=== PATIENT | female | born 1945 | race Caucasian/White ===

== ENCOUNTER 2021-03-11 10:28 | Inpatient (IN) | payer MEDICARE, BC, SELFPAY ==
[2021-03-11] VITALS (24 sets, daily range): BP systolic 61–135; BP diastolic 37–70; PULSE 86–112; RESP 16–29; TEMP 36.7–39.4; O2SAT 93–100; BMI 44.1
--- NOTE | ~2021-03-11 | US_ITS ---
EXAMINATION: US renal BI DATE: 03/12/2021 08:22 INDICATION: Acute kidney injury TECHNIQUE: Multiple grayscale and Doppler ultrasound images of the kidneys were obtained. COMPARISON: None. FINDINGS: The kidneys are poorly visualized due to body habitus. The right kidney measures 11.8 x 5.6 x 5.1 cm. The left kidney measures 10.8 x 4.8 x 5.6 cm. The kidneys demonstrate normal parenchymal e chogenicity. There is no hydronephrosis. The bladder is decompressed by a Pearson catheter. IMPRESSION: 1. Grossly normal kidneys without hydronephrosis. Reviewed, dictated and finalized at location A.
--- NOTE | ~2021-03-11 | XR_ITS ---
EXAMINATION: XR chest PICC line EXAM DATE: 03/11/2021 16:52 INDICATION: Check line placement. TECHNIQUE: Portable AP frontal chest x-ray was obtained. Comparison is made to prior examination from 03/11/2021. FINDINGS: Left IJ venous line, tip extending along expected course, tip overlying the SVC below the l evel of the fadumo. Right midlung zone granuloma. Left basilar linear atelectasis. The cardiac silhou ette is enlarged. There is pulmonary vascular congestion. There is no pneumothorax suspected. There a re no pleural effusions. There is aortic arteriosclerosis. There are mild bony degenerative changes. IMPRESSION: 1. Central line in position. 2. Cardiomegaly, pulmonary vascular congestion. 3. Left basilar linear atelectasis. Reviewed, dictated and finalized at location A.
--- NOTE | ~2021-03-11 | XR_ITS ---
EXAMINATION: XR chest 2V DATE: 03/11/2021 10:55 INDICATION: Weakness. Right lung nodule. TECHNIQUE: frontal and lateral views of the chest were obtained. COMPARISON: Chest radiograph dated 02/20/[address] dated 04/23/2017 FINDINGS: Calcified right upper lobe nodule consistent with old granulomatous disease. Mild left basilar atelec tasis/scarring. No new airspace opacities, pulmonary edema, pleural effusion or pneumothorax. The car diomediastinal silhouette is normal. Osteopenia with thoracic kyphosis and mild anterior wedging of a few mid thoracic vertebral bodies. There are bridging osteophytes at multiple levels in the spine, c onsistent with diffuse idiopathic skeletal hyperostosis (DISH). IMPRESSION: 1. Mild left basilar atelectasis/scarring. No other acute cardiopulmonary disease. Reviewed, dictated and finalized at location A. IMPRESSION: 1. Mild left basilar atelectasis/scarring. No other acute cardiopulmonary disea se.
--- NOTE | ~2021-03-11 | XR_ITS ---
EXAMINATION: XR chest 2V DATE: 03/15/2021 07:58 INDICATION: Aspiration. TECHNIQUE: Frontal and lateral views of the chest were obtained. COMPARISON: Chest single view 03/11/2021, chest CT 04/23/2017 FINDINGS: Calcified right lung nodules are consistent with old granulomatous disease. There are airsp lizandro opacities at lung bases. There are small pleural effusions. No pneumothorax. The heart size is no rmal. A left internal jugular central venous catheter is seen with tip in the superior vena cava. Jose gical clips in the right upper quadrant are likely from cholecystectomy. IMPRESSION: 1. Small pleural effusions. 2. Worsened airspace opacities at the lung bases, consistent with atelectasis versus pneumonia. Reviewed, dictated and finalized at location A. IMPRESSION: 1. Small pleural effusions. 2. Worsened airspace opacities at the lung bases, consistent with atelectasis v ersus pneumonia.
--- NOTE | ~2021-03-11 | CT_ITS ---
EXAMINATION: CTA abdomen pelvis DATE: 03/17/2021 18:32 CDT INDICATION: History of abdominal aortic aneurysm. TECHNIQUE: Computed tomographic angiography (CTA) of the abdomen and pelvis was performed without and with 100 mL Omnipaque-350 intravenous contrast. The dose-length product was 1033.79 mGy-cm. Maximum intensity projection 3D-reconstructions of the aorta and other arteries were constructed by the techn ologist on a separate workstation. COMPARISON: CT dated 03/20/2011. FINDINGS: There has been enlargement of infrarenal abdominal saccular aneurysm measuring 6 x 5.8 cm c ompared with 4.3 x 3.9 cm on prior examination. There is mural thrombus. Celiac axis, SMA and renal a rteries are patent. The XAVIER is identified with enhancement. The aneurysm ends just proximal to the ao rtic bifurcation. Small pleural effusions. Bibasilar airspace disease which most likely represents atelectasis. Pneumon ia less favored. There is nodular appearance to the liver surface, suspicious for cirrhosis. The spleen, pancreas, adr enal glands and kidneys are unremarkable. There are ventral hernias of the lower abdomen containing f at. Nonobstructive bowel gas pattern. Colonic diverticulosis without evidence for acute diverticuliti s. Uterus is surgically absent. There is moderate-severe lumbar spondylosis. No free air or free flui d. There is a Pearson catheter in the bladder. IMPRESSION: 1. Enlarging saccular aneurysm of the infrarenal abdominal aorta measuring 6 x 5.8 cm compared with 4 .3 x 3.9 cm on 03/20/2011. 2: Bibasilar airspace disease which may represent atelectasis or developing pneumonia. 3: Small pleural effusions. 4: Nodular liver surface, suspicious for cirrhosis. Reviewed, dictated and finalized at location A. IMPRESSION: 1. Enlarging saccular aneurysm of the infrarenal abdominal aorta measuring 6 x 5.8 cm compared with 4.3 x 3.9 cm on 03/20/2011. 2: Bibasilar airspace disease which may represent atelectasis or developing pne umonia. 3: Small pleural effusions. 4: Nodular liver surface, suspicious for cirrhosis.
--- NOTE | ~2021-03-11 | XR_ITS ---
EXAMINATION: XR abdomen/kub 1V EXAM DATE: 03/17/2021 16:48 INDICATION: Abdominal pain. TECHNIQUE: Frontal projection of the upper abdomen, frontal projection lower abdomen/pelvis for inter pretation. There is no prior study for comparison. FINDINGS: There are cholecystectomy clips. Moderate amount of colonic gas, smaller amount of stool No small bowel dilation, nonobstructive bowel gas pattern. There are no suspicious calcifications identified. There is no organomegaly suspected. There are bony degenerative changes. Possible sma ll pleural effusions. IMPRESSION: Nonobstructive bowel gas pattern. Possible small pleural effusions. Reviewed, dictated and finalized at location B. IMPRESSION: Nonobstructive bowel gas pattern. Possible small pleural effusions .
--- NOTE | 2021-03-11 10:39 | ECG_ITS ---
Measurements Intervals [place] Rate: 92 P: -43 OR: 146 QRS: -9 QRSD: 87 T: 30 QT: 397 QTc: 493 Interpretive Statements SINUS RHYTHM DELAYED PRECORDIAL R/S TRANSITION BASELINE ARTIFACT- I, III BORDERLINE ECG Electronically Signed On 03-11-2021 13:07:12 CDT by Bruce Flowers D.O.
[2021-03-11 10:51] LABS: Hematocrit 40.7 % (37.0-47.0); Hemoglobin 13.3 g/dL (12.0-15.0); Mean Corpuscular HGB Conc 32.7 g/dl (32-36); Mean Corpuscular Hemoglobin 31.2 pg (26-34); Mean Corpuscular Volume 95.5 fl (80-100); Mean Platelet Volume 11.3 fl (7.4-10.4); Platelet Count Result 212 k/mm3 (150-375); Red Blood Count 4.26 M/mm3 (4.2-5.4); Red Cell Distribution Width 13.5 % (11.5-14.5); White Blood Count 30.9 K/mm3 (4.5-10.0)
[2021-03-11 11:06] LABS: Albumin Level 4.1 g/dL (3.5-5.1); Alkaline Phosphatase 106 U/L (38-126); Anion Gap 18 mmol/L (8-16); Aspartate Amino Transferase 33 U/L (14-36); Bilirubin,Total 0.5 mg/dL (0.2-1.3); Blood Urea Nitrogen 27 mg/dL (7-17); Calcium 9.7 mg/dL (8.4-10.2); Carbon Dioxide 16 mmol/L (22-30); Chloride 104 mmol/L (98-107); Estimated CRCL calculation 20 ml/min; Estimated Glomerular Filt Rate 17; Glucose 312 mg/dL (65-105); Potassium 3.1 mmol/L (3.4-5.0); Sodium 138 mmol/L (137-145)
[2021-03-11 11:13] LABS: Alanine Aminotransferase 27 U/L (4-35)
[2021-03-11 11:32] LABS: Total Cells Counted 100
[2021-03-11 11:33] LABS: Band Neutrophils Percent 11 % (0-6); Lymphocytes Absolute Manual 2.47 K/mm3 (1.1-4.5); Lymphocytes Percent Manual 8 % (18-44); Monocytes Absolute Manual 1.23 K/mm3 (0.1-0.90); Monocytes Percent Manual 4 % (3-9); Neutrophils Absolute Manual 27.19 K/mm3 (1.7-7.2); Neutrophils Percent Manual 77 % (46-73); Platelet Estimate Adequate (Adequate)
[2021-03-11] MEDS: SODIUM CHLORIDE 0.9% IV 1,000 ML 999 ML IV CONT (12:41)
--- NOTE | 2021-03-11 12:53 | ED.GENADULT ---
HPI - General Adult General Chief complaint: Weakness Stated complaint: weakness mult c/o Time Seen by Provider: 03/11/21 12:14 Source: patient Mode of arrival: ambulatory Limitations: no limitations History of Present Illness HPI narrative: Patient is a 75-year-old female complaining of not feeling well described as fatigue, generalized weakness, nausea that started approximately 3 weeks ago after my family doctor changed my Januvia to Jardiance since then I have been feeling weak no energy no appetite feel like I am gonna pass out . Daughter also states that patient's blood pressure is low possibly due to patient recently being placed on lisinopril 20 mg by her primary care physician. Patient denies any headache, dizziness, chest pain, abdominal pain, vomiting, diarrhea, fever or chills. Related Data Home Medications Medication Instructions Recorded Confirmed aspirin 81 mg tablet,delayed 81 mg PO DAILY 05/10/20 11/17/20 release cholecalciferol (vitamin D3) 125 125 mcg PO DAILY 05/10/20 11/17/20 mcg (5,000 unit) capsule coenzyme Q10 200 mg capsule 200 mg PO DAILY 05/10/20 11/17/20 sitagliptin 100 mg tablet 100 mg PO DAILY 05/10/20 11/17/20 vitamin A-vit C-vit E-zinc-Cu 1 tablet PO BID tablet 05/10/20 11/17/20 tablet vitamin B complex 1 tablet PO DAILY 05/10/20 11/17/20 ferrous sulfate 325 mg (65 mg 325 mg PO DAILY 11/16/20 11/17/20 iron) tablet melatonin 10 mg capsule 10 mg PO QHS 11/16/20 11/17/20 vitamin B12 0.5 mg-folic acid 1 mg 1 tablet PO DAILY 11/16/20 11/17/20 tablet Allergies Allergy/AdvReac Type Severity Reaction Status Date / Time No Known Allergies Allergy Mild Verified 03/11/21 11:38 Review of Systems Review of Systems: All systems reviewed & are unremarkable except as noted in HPI and below Constitutional: Constitutional: Denies body ache(s), Denies chills, Denies excessive sweating, Denies fever(s), Denies headache(s) and Denies weight loss Eyes: Eyes: Denies blurry vision, Denies change in vision and Denies loss of vision ENT: Denies dizziness, Denies ear discharge, Denies headache(s), Denies lip swelling, Denies epistaxis, Denies nasal congestion, Denies neck pain, Denies throat swelling and Denies tongue swelling Cardiovascular: Cardiovascular: Denies chest pain, Denies chest pain at rest, Denies chest pain with activity, Denies diaphoresis, Denies rapid heart rate, Denies edema, Denies irregular heart rhythm, Denies lightheadedness, Denies palpitations, Denies dyspnea and Denies dyspnea on exertion Respiratory: Respiratory: Denies chest congestion, Denies cough, Denies hemoptysis, Denies dyspnea and Denies dyspnea on exertion Gastrointestinal: Gastrointestinal: Denies abdominal pain, Denies melena, Denies hematochezia, Denies diarrhea, Denies nausea, Denies vomiting and Denies hematemesis Musculoskeletal: Musculoskeletal: Denies abnormal gait, Denies deformity, Denies joint swelling, Denies limited range of motion, Denies neck pain and Denies numbness Neurologic: Denies Abnormal speech present, Denies abnormal gait, Denies confusion, Denies dizziness, Denies headache(s), Denies focal weakness, Denies loss of vision, Denies numbness, Denies Other visual disturbances, Denies Sensory deficit (Neuro) and Denies weakness Psychiatric: Psychiatric: Denies confusion, Denies depression, Denies auditory hallucinations, Denies homicidal ideation and Denies suicidal ideation Endocrine: Endocrine: Denies cold intolerance, Denies excessive sweating, Denies fatigue, Denies heat intolerance and Denies palpitations Hematologic/Lymphatic: Hematologic/Lymphatic: Denies easy bleeding and Denies easy bruising Allergic/Immunologic: Allergic/Immunologic: Denies lip swelling, Denies throat swelling and Denies tongue swelling PMFSH Past Medical History Medical History Diabetes mellitus Obstructive sleep apnea Uterine cancer Surgical History Surgica
--- NOTE | 2021-03-11 13:00 | PC.NURSE ---
straight cath in place, scant amount of urine in bag, not enough for UA specimen.
[2021-03-11 14:08] LABS: Add Urine Microscopic? YES; Appearance Urine Turbid (Clear); Bacteria Urine Trace /hpf; Bilirubin Urine Negative (Negative); Blood Urine 3+ (Negative); Color Urine Amber (Yellow); Glucose Urine UA 3+ mg/dL (Negative); Ketones Urine Negative (Negative); Leukocyte Esterase Ur 2+ LEU/UL (Negative); Mucus Urine Moderate /lpf; Nitrate Urine Negative (Negative); Protein Urine 2+ mg/dL (Negative); RBC Urine >75 /hpf (0-2); Specific Grav Ur 1.023 (1.001-1.035); Squamous Epithelial Cell Urine Many /hpf (Few); Urobilinogen Urine Negative mg/dL (<2.0); WBC Clumps Urine Present /HPF; WBC Urine >75 /hpf
[2021-03-11 15:14] LABS: Alveolar/Arterial O2 Gradient 92.6 mmHg; Base Excess ABG -5.2 mEq/l (+/-2.0); Carboxyhemoglobin 0.7 % THb (0-2.0); Fractional Inspired Oxygen 28 %; HCO3 ABG 18.3 mEq/l (22.0-26.0); Oxygen Content ABG 17.1 %vol (16.0-22.0); Oxygen Saturation ABG 94.8 % (95.0-100.0); PCO2 ABG 29.7 mmHg (35.0-45.0); PO2 FiO2 Ratio Arterial Blood 2.57 %; Reduced Hemoglobin 5.3 %THb (0-5.0); Total Hemoglobin 12.9 g/dL (12.0-18.0); pH ABG 7.407 (7.350-7.450)
[2021-03-11 15:15] LABS: Device NASAL CANNULA; Modified Allen's Test Pass; Site Drawn RIGHT RADIAL
[2021-03-11] MEDS: ONDANSETRON INJ 4 MG/2 ML VIAL IV PUSH (15:35)
[2021-03-11] MEDS: LIDOCAINE HCL 1% PF INJ 5 ML VIAL INFILTRATE (16:25)
[2021-03-11 17:33] LABS: Lactic Acid Reflex 2.6 mmol/L (0.7-2.1)
[2021-03-11] MEDS: LACTATED RINGERS 1,000 ML 125 ML IV CONT ×2 (17:40→23:59)
--- NOTE | 2021-03-11 18:27 | ADMGEN ---
This patient, Veronika Dougherty, was admitted to Intensive Care Unit-5 at 1730 on 03-11-21. Patient/family oriented to hospital policies and general routines including ID bracelet, bed and alarms, visiting hours, pain management, procedures, bathroom and other care routines, personal items, smoking policy, room service/diet, and visiting hours. Information on how to activate the Rapid Response Team has been discussed. Patient/Family are encouraged to report perceived risks to care and to ask questions if they do not understand what they are told or what they should do.
[2021-03-11] MEDS: CENTRAL LINE FLUSH 10 ML IV PUSH ×2 (18:52→22:17)
--- NOTE | 2021-03-11 18:54 | PM.IMHP ---
H&P: HPI History of Present Illness Date/Time: 03/11/21 18:54 this is a 75-year-old female patient who lives at home alone. The patient has been feeling poorly for the last 3 weeks. The patient recently had her diabetic medications changed and she has been feeling fatigued generalized weakness and some nausea. She has not been eating very well at all. She has no appetite and is weak and stated she felt like she was going to pass out. The daughter is at the bedside and states that she is a nurse. The daughter stated that her mother's blood pressure is low today and that she recently was started on lisinopril. Patient's white count was noted to be 30.9. With a shift to the left. Her potassium is found to be 3.1. But was not supplemented as of yet because the patient was too nauseated to take the p.o. potassium. An Ig was placed in the emergency room. Her creatinine was 2.8 today. Her previous creatinine was 1.0 back in November. GFR 17. Pearson catheter was placed in the emergency room. The patient only has about 400 cc of dark cloudy urine. The patient was found to be positive for UTI. Also there was some concern for possible aspiration pneumonia as the patient was found have vomit on the side of her face when the EMS came to pick her up. Her blood sugar was found to be 314 today. Her last A1c was 7.8 in November. Her lactic today is 2.6. Troponin was 0.100. Blood and urine cultures were obtained. The sepsis protocol was initiated in the Emergency with 30 mils per kg of IV fluids. The patient was started on Zosyn. Patient's initial blood pressures were noted to be 98/43 and a IJ was placed. IV fluids were given and antibiotics were given in the emergency room. Levophed was ordered but never started because her blood pressure started to come up with The 3 L of IV fluids. her blood pressure is 119/66 now. Her daughter is at the bedside who is the power slag mixer. We have explained all of the protocols for sepsis to the patient's daughter and the patient. The patient's daughters very upset that her mother's blood pressure was so low to begin with. I explained her sepsis protocol to the patient and the daughter. The patient is alert orientated x4 and able to answer questions on her own. The daughter initially stated that she wanted her mother moved to [place] and was not happy with the care here. I spoke with the patient the patient stated that she is okay with staying here. The patient is now receiving IV Tylenol for a temperature of 37.8?. The patient is now having fever and chills. The patient is being admitted to inpatient ICU on the date of service of 03/11/2021. Chief Complaint: Weakness Review of Systems Review of Systems: All systems reviewed & are unremarkable except as noted in HPI and below Constitutional: Constitutional: Reports as per HPI and Reports no additional constitutional complaints Eyes: Eyes: Reports as per HPI and Reports no additional eye complaints ENT: Reports system reviewed and no additional complaints, except as documented and Reports Normal hearing present Cardiovascular: Cardiovascular: Reports no additional cardiovascular complaints Respiratory: Respiratory: Reports no additional respiratory complaints and Reports no additional respiratory complaints Gastrointestinal: Gastrointestinal: Reports as per HPI and Reports no additional gastrointestinal complaints Musculoskeletal: Musculoskeletal: Reports no additional musculoskeletal complaints Integumentary/Breasts: Skin/Breast: Reports system reviewed and no additional complaints, except as docu and Reports as per HPI Neurologic: Reports system reviewed and no additional complaints, except as documented, Reports as per HPI and Reports Normal hearing present Psychiatric: Psychiatric: Reports no additional psychiatric complaints and Reports as per HPI Endocrine: Endocrine: Reports no additional endocrine complaints Hematologic/Lymphatic: Hematologic/Lymph
[2021-03-11] MEDS: KCL 20 MEQ/SW 100 ML 100 ML 50 MEQ IVPB (19:39)
[2021-03-11] MEDS: HEPARIN SODIUM 5,000 UNITS/ML VIAL 5000 UNITS SUB-Q (19:45)
[2021-03-11 19:59] LABS: Lactic Acid Reflex 1.5 mmol/L (0.7-2.1)
[2021-03-11 20:20] LABS: Reflex Lactic Acid Yes or No Add Lactic
[2021-03-11 20:26] LABS: Troponin I 0.055 ng/mL (0.000-0.034)
[2021-03-11 21:14] LABS: Glucose Point of Care 158 mg/dl (65-105)
[2021-03-11 23:00] LABS: Anion Gap 8 mmol/L (8-16); Blood Urea Nitrogen 27 mg/dL (7-17); Calcium 8.5 mg/dL (8.4-10.2); Carbon Dioxide 23 mmol/L (22-30); Chloride 106 mmol/L (98-107); Estimated CRCL calculation 27 ml/min; Estimated Glomerular Filt Rate 23; Glucose 167 mg/dL (65-105); Potassium 3.7 mmol/L (3.4-5.0); Sodium 137 mmol/L (137-145)
[2021-03-11 23:16] LABS: Troponin I 0.068 ng/mL (0.000-0.034)
[2021-03-12] VITALS (16 sets, daily range): BP systolic 112–159; BP diastolic 41–67; PULSE 84–117; RESP 16–30; TEMP 36.8–38.7; O2SAT 90–98
--- NOTE | 2021-03-12 | ECHO_ITS ---
Patient Info Name: Veronika Dougherty Age: 75 years : 1945 Gender: Female Ht: 64 in Wt: 259 lbs BSA: 2.37 m2 HR: 117 bpm BP: 132 / 119 mmHg Heart Rhythm: Sinus Rhythm Technical Quality: Poor Exam Date: 03/12/2021 11:17 AM Exam Location: [facility] Pulmonary Exam Room: ICU 5 Patient Status: Inpatient Admit Date: 03/11/2021 Staff Ordering Physician: Freddy Ortiz MD Shot Tube Machine Tender: Rachel oBse RDCS Attending Provider: Peter Mercer MD Exam Type: CA echo dop color flow w con Study Info Indications - NSTEMI Complete two-dimensional, color flow and Doppler transthoracic echocardiogram is performed with contrast to opacify the left ventricle and to improve the deliniation of the left ventricle endocardial borders. Contrast/Agitated Saline Contrast/Ag. Saline: Definity Amount: 1.00 ml Administered By: Rocky Woodruff RN Existing IV Access: Yes IV Access Condition: patent with no signs of infiltration Reason for Poor Study: patient body habitus Summary 1. Left ventricular chamber dimension is normal. 2. Left ventricular systolic function is normal, estimated at 55-60%. 3. Definity contrast injected to improve visualization. 4. No ischemic wall motion abnormalities were identified. 5. Obese body habitus, technically challenging exam. Left Ventricle Left ventricular chamber dimension is normal. Left ventricular systolic function is normal, estimated at 55-60%. The left ventricular diastolic function is grade I diastolic dysfunction. Definity contrast injected to improve visualization. No ischemic wall motion abnormalities were identified. Right Ventricle Right ventricular chamber dimension is normal. Left Atria Left atrial chamber dimension is normal. Right Atria Right atrial chamber dimension is not well visualized. Aortic Valve The aortic valve is trileaflet. There is mild aortic valve sclerosis. Pulmonic Valve The pulmonic valve is not well visualized. Mitral Valve The mitral valve has normal leaflets. Tricuspid Valve The tricuspid valve leaflets are normal. Pericardium/Pleural The pericardium appears normal. Aorta The aortic root size at the sinus of Valsalva is normal. Left Ventricular Outflow Tract Name Value Normal LVOT 2D LVOT Diameter 2.08 cm LVOT Doppler LVOT Peak Gradient 7 mmHg LVOT Mean Gradient 5 mmHg LVOT VTI 23.16 cm LVOT VTI/AV VTI Ratio 0.74 LVOT Stroke Volume 78.70 ml LVOT CO 22.06 l/min LVOT CI 9.31 L/min/m2 Pulmonic Valve Name Value Normal PV Doppler PV Peak Gradient 4 mmHg Mitral Valve
[2021-03-12] MEDS: ONDANSETRON INJ 4 MG/2 ML VIAL IV PUSH ×2 (04:50→12:30)
[2021-03-12] MEDS: CENTRAL LINE FLUSH 10 ML IV PUSH ×4 (04:50→20:55)
[2021-03-12 05:22] LABS: Hematocrit 32.5 % (37.0-47.0); Hemoglobin 11.1 g/dL (12.0-15.0); Hemoglobin A1C 7.1 % (<5.7); Mean Corpuscular HGB Conc 34.2 g/dl (32-36); Mean Corpuscular Hemoglobin 31.7 pg (26-34); Mean Corpuscular Volume 92.9 fl (80-100); Mean Platelet Volume 11.5 fl (7.4-10.4); Platelet Count Result 141 k/mm3 (150-375); Red Cell Distribution Width 13.2 % (11.5-14.5); White Blood Count 15.8 K/mm3 (4.5-10.0)
[2021-03-12 05:52] LABS: Alanine Aminotransferase 21 U/L (4-35); Albumin Level 3.2 g/dL (3.5-5.1); Alkaline Phosphatase 82 U/L (38-126); Anion Gap 8 mmol/L (8-16); Aspartate Amino Transferase 43 U/L (14-36); Bilirubin,Total 0.6 mg/dL (0.2-1.3); Blood Urea Nitrogen 25 mg/dL (7-17); Calcium 8.6 mg/dL (8.4-10.2); Carbon Dioxide 22 mmol/L (22-30); Chloride 107 mmol/L (98-107); Estimated CRCL calculation 30 ml/min; Estimated Glomerular Filt Rate 26; Glucose 145 mg/dL (65-105); Magnesium 1.7 mg/dL (1.6-2.3); Potassium 3.5 mmol/L (3.4-5.0); Sodium 137 mmol/L (137-145)
[2021-03-12 06:58] LABS: Band Neutrophils Percent 7 % (0-6); Monocytes Absolute Manual 0.31 K/mm3 (0.1-0.90); Monocytes Percent Manual 2 % (3-9); Neutrophils Absolute Manual 14.37 K/mm3 (1.7-7.2); Neutrophils Percent Manual 84 % (46-73); Platelet Estimate Adequate (Adequate); Total Cells Counted 100
[2021-03-12] MEDS: ASPIRIN 81 MG ENTERIC TABLET PO (08:48)
[2021-03-12] MEDS: HEPARIN SODIUM 5,000 UNITS/ML VIAL 5000 UNITS SUB-Q ×2 (08:48→20:54)
[2021-03-12 08:56] LABS: Glucose Point of Care 152 mg/dl (65-105)
--- NOTE | 2021-03-12 09:10 | WPDCNINT ---
Assessment and Plan Assessment and plan (1) Sepsis: Code(s): A41.9 - Sepsis, unspecified organism Status: Acute Assessment and Plan: secondary to UTI Patient was given 30 mL/kgIV fluids bolus per septic protocol. The patient was started on Zosyn for possible aspiration pneumonia as well as urinary tract infection. central venous catheter was placed in anticipation of starting vasopressors as patient's blood pressure remained low after fluid bolus but blood pressure improved and she has not required vasopressors at this time. continue IV fluids and closer monitoring start Levophed if needed cultures urine and blood sent and pending (2) Urinary tract infection: Qualifiers: Hematuria presence: with hematuria Urinary tract infection type: acute cystitis Qualified Code(s): N30.01 - Acute cystitis with hematuria Code(s): N39.0 - Urinary tract infection, site not specified Status: Acute Assessment and Plan: see above (3) Acute renal failure: Qualifiers: Acute renal failure type: unspecified Qualified Code(s): N17.9 - Acute kidney failure, unspecified Code(s): N17.9 - Acute kidney failure, unspecified Status: Acute Assessment and Plan: likely prerenal secondary to sepsis and hypertension creatinine is improving with IV fluids Continue to hydrate the patient. check renal ultrasound (4) COPD (chronic obstructive pulmonary disease): Qualifiers: COPD type: unspecified COPD Qualified Code(s): J44.9 - Chronic obstructive pulmonary disease, unspecified Code(s): J44.9 - Chronic obstructive pulmonary disease, unspecified Status: Chronic Assessment and Plan: bronchodilators (5) Obstructive sleep apnea: Code(s): G47.33 - Obstructive sleep apnea (adult) (pediatric) Status: Chronic Assessment and Plan: Continue with home CPAP. The patient brought her own in with her. (6) Acute hypokalemia: Code(s): E87.6 - Hypokalemia Status: Acute Assessment and Plan: replace low potassium (7) Diabetes mellitus: Qualifiers: Diabetes mellitus type: type 2 Diabetes mellitus assisted insulin use: without assisted use Diabetes mellitus complication status: with hyperglycemia Qualified Code(s): E11.65 - Type 2 diabetes mellitus with hyperglycemia Code(s): E11.9 - Type 2 diabetes mellitus without complications Status: Chronic Assessment and Plan: Accu-Cheks AC and HS and check A1c. (8) Elevated troponin: Code(s): R77.8 - Other specified abnormalities of plasma proteins Status: Acute Assessment and Plan: likely secondary to sepsis and renal dysfunction. patient denies any chest pain. EKG reviewed add aspirin check echo Additional Plan DVT prophylaxis - heparin subcu Code Status - Full Code Family updated at bedside Total Critical Care Time - 35 minutes Due to a high probability of clinically significant, life threatening deterioration, the patient required my highest level of preparedness to intervene emergently and I personally spent this critical care time directly and personally managing the patient. This critical care time included obtaining a history; examining the patient; pulse oximetry; ordering and review of studies; arranging urgent treatment with development of a management plan; evaluation of patient's response to treatment; frequent reassessment; and discussions with other providers. It was exclusive of separately billable procedures and treating other patients and teaching time. Please see Assessment and Plan section and the rest of the note for further information on patient assessment and treatment Radiation Control Worker Consult Note Consult date: 03/12/21 Time Seen: 07:10 HPI: Veronika Dougherty is a 75 year old female presented yesterday to ED with chief complaint of feeling poorly for the last 3 weeks. The vidhya
--- NOTE | 2021-03-12 09:54 | PC.NURSE ---
This nurse made a return phone call to daughter Ronit and a update was given on current plan of care. All questions answered per Ronit.
[2021-03-12] MEDS: LACTATED RINGERS 1,000 ML 125 ML IV CONT (09:59)
[2021-03-12] MEDS: SERTRALINE HCL 50 MG TABLET 100 MG PO (09:59)
[2021-03-12] MEDS: POTASSIUM CHLORIDE 20 MEQ TABLET 40 MEQ PO (09:59)
[2021-03-12 12:35] LABS: Glucose Point of Care 166 mg/dl (65-105)
--- NOTE | 2021-03-12 12:50 | PC.NURSE ---
pt transferred to room 242 via bed from ICU, oriented to new room and environment, no distress noted
--- NOTE | 2021-03-12 13:58 | PC.NURSE ---
This patient, Veronika Dougherty, was transferred to [ 242 ] on 03/12/21 at 1250. Personal belongings sent with patient. Report given to [ CON Hathaway. ]. Appropriate documentation sent with patient.
[2021-03-12 17:29] LABS: Glucose Point of Care 164 mg/dl (65-105)
--- NOTE | 2021-03-12 17:58 | PM.IMPN ---
Progress Note: A&P Assessment and Plan (1) Septic shock: Code(s): A41.9 - Sepsis, unspecified organism; R65.21 - Severe sepsis with septic shock Status: Acute Assessment and Plan: IV fluids at 1:20 a.m. 5 cc an hour will lower it to 60 cc an hour. Mildly tachycardic still and febrile Salbador the IV fluids on Hypotension has resolved without IV pressors she is turning positive on her blood culture (2) Urinary tract infection: Qualifiers: Hematuria presence: with hematuria Urinary tract infection type: acute cystitis Qualified Code(s): N30.01 - Acute cystitis with hematuria Code(s): N39.0 - Urinary tract infection, site not specified Status: Acute Assessment and Plan: The patient is on Zosyn at this time. blood culture positive for gram-negative bacilli Need to plan to remove the left IJ if it is not needed by tomorrow (3) Acute renal failure: Qualifiers: Acute renal failure type: unspecified Qualified Code(s): N17.9 - Acute kidney failure, unspecified Code(s): N17.9 - Acute kidney failure, unspecified Status: Acute Assessment and Plan: creatinine on admission 2.8 renal ultrasound negative Likely due to sepsis and dehydration Hold metformin and lisinopril Hold Jardiance due to urine tract infection and discontinue at discharge (4) COPD (chronic obstructive pulmonary disease): Qualifiers: COPD type: unspecified COPD Qualified Code(s): J44.9 - Chronic obstructive pulmonary disease, unspecified Code(s): J44.9 - Chronic obstructive pulmonary disease, unspecified Status: Chronic Assessment and Plan: Will do a Xopenex. (5) Obstructive sleep apnea: Code(s): G47.33 - Obstructive sleep apnea (adult) (pediatric) Status: Chronic Assessment and Plan: Continue with home CPAP. The patient brought her own in with her. (6) HTN (hypertension) with goal to be determined: Code(s): I10 - Essential (primary) hypertension Status: Chronic Assessment and Plan: hold blood pressure medication (7) Acute hypokalemia: Code(s): E87.6 - Hypokalemia Status: Acute Assessment and Plan: replace and monitor (8) Diabetes mellitus: Qualifiers: Diabetes mellitus type: type 2 Diabetes mellitus terminal worker insulin use: without terminal worker use Diabetes mellitus complication status: with hyperglycemia Qualified Code(s): E11.65 - Type 2 diabetes mellitus with hyperglycemia Code(s): E11.9 - Type 2 diabetes mellitus without complications Status: Chronic Assessment and Plan: Accu-Cheks AC and HS and A1c at 7.1 (9) Elevated troponin: Code(s): R77.8 - Other specified abnormalities of plasma proteins Status: Acute Assessment and Plan: likely due to sepsis with flat cardiac enzymes. No chest pain unlikely to be ACS (10) Bacteremia: Code(s): R78.81 - Bacteremia Status: Acute Assessment and Plan: Gram-negative bacilli Already on Zosyn (11) Diarrhea: Code(s): R19.7 - Diarrhea, unspecified Status: Acute Assessment and Plan: check C diff Additional Plan will plan to remove IJ and Pearson tomorrow if remains stable Subjective Date/time seen: 03/12/21 17:58 Interval history: feels weak but better than yesterday. Continues to have fever on and off. She still has a Pearson catheter in left IJ in place. She has been having explosive diarrhea 2-3 episodes already today. she has chronic diarrhea in the past Review of Systems Review of Systems: All systems reviewed & are unremarkable except as noted in HPI and below Exam Narrative: Exam Narrative: GENERAL: The patient is well developed, not in acute distress HEENT: Nonicteric sclerae, PERRLA, EOMI. Oropharynx clear. Moist mucous membranes. Conjunctivae appear well perfused. neck: neck supple left IJ in place CHEST: Chest wall
[2021-03-12] MEDS: LACTATED RINGERS 1,000 ML 60 ML IV CONT (20:54)
[2021-03-12 21:41] LABS: Glucose Point of Care 173 mg/dl (65-105)
[2021-03-13] VITALS (14 sets, daily range): BP systolic 127–137; BP diastolic 51–54; PULSE 91–102; RESP 16–20; TEMP 36.7–37.1; O2SAT 90–99
[2021-03-13] MEDS: CENTRAL LINE FLUSH 20 ML IV PUSH (05:06)
[2021-03-13] MEDS: CENTRAL LINE FLUSH 10 ML IV PUSH ×4 (05:06→21:33)
[2021-03-13 05:30] LABS: Basophils Percent Auto 0.3 % (0.2-1.2); Eosinophils Percent Auto 0.1 % (0-4.4); Hematocrit 35.6 % (37.0-47.0); Hemoglobin 11.5 g/dL (12.0-15.0); Immature Granulocyte Absolute 0.05 K/mm3 (0.00-0.031); Immature Granulocyte Percent A 0.5 % (0-0.5); Lymphocytes Absolute Auto 0.54 K/mm3 (0.9-3.2); Lymphocytes Percent Auto 5.6 % (18.3-44.2); Mean Corpuscular HGB Conc 32.3 g/dl (32-36); Mean Platelet Volume 11.1 fl (7.4-10.4); Monocytes Absolute Auto 0.4 K/mm3 (0.1-0.6); Monocytes Percent Auto 4.4 % (2.6-8.5); Neutrophils Absolute Auto 8.6 K/mm3 (1.3-6.7); Neutrophils Percent Auto 89.1 % (45.5-73.1); Platelet Count Result 133 k/mm3 (150-375); Red Blood Count 3.71 M/mm3 (4.2-5.4); Red Cell Distribution Width 13.5 % (11.5-14.5); White Blood Count 9.7 K/mm3 (4.5-10.0)
[2021-03-13 05:48] LABS: Anion Gap 9 mmol/L (8-16); Blood Urea Nitrogen 22 mg/dL (7-17); Calcium 8.8 mg/dL (8.4-10.2); Carbon Dioxide 22 mmol/L (22-30); Chloride 108 mmol/L (98-107); Estimated CRCL calculation 41 ml/min; Estimated Glomerular Filt Rate 37; Glucose 161 mg/dL (65-105); Potassium 3.8 mmol/L (3.4-5.0); Sodium 139 mmol/L (137-145)
[2021-03-13 05:54] LABS: NT Pro B Type Natriuretic Pept 1370 pg/mL (5-100)
[2021-03-13] MEDS: ACETAMINOPHEN 500 MG TABLET 1000 MG PO (08:50)
[2021-03-13] MEDS: SERTRALINE HCL 50 MG TABLET 100 MG PO (08:51)
[2021-03-13] MEDS: ASPIRIN 81 MG ENTERIC TABLET PO (08:51)
[2021-03-13] MEDS: HEPARIN SODIUM 5,000 UNITS/ML VIAL 5000 UNITS SUB-Q ×2 (08:52→21:01)
--- NOTE | 2021-03-13 10:06 | PM.IMPN ---
Progress Note: A&P Assessment and Plan (1) Septic shock: Code(s): A41.9 - Sepsis, unspecified organism; R65.21 - Severe sepsis with septic shock Status: Acute Assessment and Plan: IV fluids at 1:20 a.m. 5 cc an hour will lower it to 60 cc an hour. Mildly tachycardic still and febrile Salbador the IV fluids on Hypotension has resolved without IV pressors she is turning positive on her blood culture 03/13/21: Will continue with IV antibiotics and monitor culture reports. (2) Urinary tract infection: Qualifiers: Hematuria presence: with hematuria Urinary tract infection type: acute cystitis Qualified Code(s): N30.01 - Acute cystitis with hematuria Code(s): N39.0 - Urinary tract infection, site not specified Status: Acute Assessment and Plan: The patient is on Zosyn at this time. blood culture positive for gram-negative bacilli Need to plan to remove the left IJ if it is not needed by tomorrow 03/13/21: Will DC Pearson catheter and continue with IV antibiotics. (3) Acute renal failure: Qualifiers: Acute renal failure type: unspecified Qualified Code(s): N17.9 - Acute kidney failure, unspecified Code(s): N17.9 - Acute kidney failure, unspecified Status: Acute Assessment and Plan: creatinine on admission 2.8 renal ultrasound negative Likely due to sepsis and dehydration Hold metformin and lisinopril Hold Jardiance due to urine tract infection and discontinue at discharge (4) COPD (chronic obstructive pulmonary disease): Qualifiers: COPD type: unspecified COPD Qualified Code(s): J44.9 - Chronic obstructive pulmonary disease, unspecified Code(s): J44.9 - Chronic obstructive pulmonary disease, unspecified Status: Chronic Assessment and Plan: Will do a Xopenex. (5) Obstructive sleep apnea: Code(s): G47.33 - Obstructive sleep apnea (adult) (pediatric) Status: Chronic Assessment and Plan: Continue with home CPAP. The patient brought her own in with her. (6) HTN (hypertension) with goal to be determined: Code(s): I10 - Essential (primary) hypertension Status: Chronic Assessment and Plan: hold blood pressure medication (7) Acute hypokalemia: Code(s): E87.6 - Hypokalemia Status: Acute Assessment and Plan: replace and monitor (8) Diabetes mellitus: Qualifiers: Diabetes mellitus type: type 2 Diabetes mellitus rodent exterminator insulin use: without rodent exterminator use Diabetes mellitus complication status: with hyperglycemia Qualified Code(s): E11.65 - Type 2 diabetes mellitus with hyperglycemia Code(s): E11.9 - Type 2 diabetes mellitus without complications Status: Chronic Assessment and Plan: Accu-Cheks AC and HS and A1c at 7.1 (9) Elevated troponin: Code(s): R77.8 - Other specified abnormalities of plasma proteins Status: Acute Assessment and Plan: likely due to sepsis with flat cardiac enzymes. No chest pain unlikely to be ACS (10) Bacteremia: Code(s): R78.81 - Bacteremia Status: Acute Assessment and Plan: Gram-negative bacilli Already on Zosyn (11) Diarrhea: Code(s): R19.7 - Diarrhea, unspecified Status: Acute Assessment and Plan: check C diff Additional Plan will plan to remove IJ and Pearson tomorrow if remains stable 03/13/21: Will continue with IV antibiotics. Will monitor culture reports. Will DC Pearson catheter. Scheduled physical therapy. Possible discharge in the morning. Subjective Date/time seen: 03/13/21 10:06 Patient was seen during the morning rounds today. Patient is feeling slightly better. Decreased shortness of breath no chest pain. No abdominal pain, nausea, no vomiting. Stool frequency has decreased. Mood stable. Review of Systems Review of Systems: All systems reviewed & are unremarkable except as noted in HPI and below Co
--- NOTE | 2021-03-13 12:01 | PCPTNOTE ---
Attempted eval and pt cooperative but unable to particiapate due to current loose stool complications. RN notified and will try PT eval tomorrow
--- NOTE | 2021-03-13 13:19 | PC.NURSE ---
call to pharm for missing hctz,new order
[2021-03-13 17:16] LABS: Glucose Point of Care 193 mg/dl (65-105)
[2021-03-13] MEDS: LACTATED RINGERS 1,000 ML 30 ML IV CONT (17:43)
[2021-03-13] MEDS: hydroCHLOROthiazide 6.25 MG TABLET PO (17:44)
[2021-03-13 19:22] LABS: Glucose Point of Care 165 mg/dl (65-105)
[2021-03-13 19:22] LABS: Glucose Point of Care 191 mg/dl (65-105)
[2021-03-13] MEDS: TOLNAFTATE 1% POWDER 45 GM BTL 1 APPLIC TOPICAL (21:35)
[2021-03-13 22:05] LABS: Glucose Point of Care 241 mg/dl (65-105)
[2021-03-14] VITALS (11 sets, daily range): BP systolic 117–123; BP diastolic 50–67; PULSE 76–98; RESP 16–24; TEMP 36.6–36.9; O2SAT 92–99; BMI 44.7
[2021-03-14] MEDS: MELATONIN 3 MG TABLET PO ×2 (00:11→20:33)
[2021-03-14] MEDS: ONDANSETRON INJ 4 MG/2 ML VIAL IV PUSH (00:12)
[2021-03-14] MEDS: CENTRAL LINE FLUSH 10 ML IV PUSH ×4 (05:10→21:21)
[2021-03-14 08:38] LABS: Glucose Point of Care 160 mg/dl (65-105)
[2021-03-14] MEDS: HEPARIN SODIUM 5,000 UNITS/ML VIAL 5000 UNITS SUB-Q ×2 (08:50→20:33)
[2021-03-14] MEDS: SERTRALINE HCL 50 MG TABLET 100 MG PO (08:51)
[2021-03-14] MEDS: TOLNAFTATE 1% POWDER 45 GM BTL 1 APPLIC TOPICAL ×2 (08:53→20:34)
[2021-03-14] MEDS: ASPIRIN 81 MG ENTERIC TABLET PO (08:53)
[2021-03-14] MEDS: hydroCHLOROthiazide 6.25 MG TABLET PO (08:55)
--- NOTE | 2021-03-14 09:26 | PM.IMPN ---
Progress Note: A&P Assessment and Plan (1) Septic shock: Code(s): A41.9 - Sepsis, unspecified organism; R65.21 - Severe sepsis with septic shock Status: Acute Assessment and Plan: IV fluids at 1:20 a.m. 5 cc an hour will lower it to 60 cc an hour. Mildly tachycardic still and febrile Salbador the IV fluids on Hypotension has resolved without IV pressors she is turning positive on her blood culture 03/13/21: Will continue with IV antibiotics and monitor culture reports. (2) Urinary tract infection: Qualifiers: Hematuria presence: with hematuria Urinary tract infection type: acute cystitis Qualified Code(s): N30.01 - Acute cystitis with hematuria Code(s): N39.0 - Urinary tract infection, site not specified Status: Acute Assessment and Plan: The patient is on Zosyn at this time. blood culture positive for gram-negative bacilli Need to plan to remove the left IJ if it is not needed by tomorrow 03/13/21: Will DC Pearson catheter and continue with IV antibiotics. 03/14/21: Blood culture noted will continue with IV is antibiotic and repeat cultures. (3) Acute renal failure: Qualifiers: Acute renal failure type: unspecified Qualified Code(s): N17.9 - Acute kidney failure, unspecified Code(s): N17.9 - Acute kidney failure, unspecified Status: Acute Assessment and Plan: creatinine on admission 2.8 renal ultrasound negative Likely due to sepsis and dehydration Hold metformin and lisinopril Hold Jardiance due to urine tract infection and discontinue at discharge (4) COPD (chronic obstructive pulmonary disease): Qualifiers: COPD type: unspecified COPD Qualified Code(s): J44.9 - Chronic obstructive pulmonary disease, unspecified Code(s): J44.9 - Chronic obstructive pulmonary disease, unspecified Status: Chronic Assessment and Plan: Will do a Xopenex. (5) Obstructive sleep apnea: Code(s): G47.33 - Obstructive sleep apnea (adult) (pediatric) Status: Chronic Assessment and Plan: Continue with home CPAP. The patient brought her own in with her. (6) HTN (hypertension) with goal to be determined: Code(s): I10 - Essential (primary) hypertension Status: Chronic Assessment and Plan: hold blood pressure medication (7) Acute hypokalemia: Code(s): E87.6 - Hypokalemia Status: Acute Assessment and Plan: replace and monitor (8) Diabetes mellitus: Qualifiers: Diabetes mellitus type: type 2 Diabetes mellitus halfway insulin use: without roasterman use Diabetes mellitus complication status: with hyperglycemia Qualified Code(s): E11.65 - Type 2 diabetes mellitus with hyperglycemia Code(s): E11.9 - Type 2 diabetes mellitus without complications Status: Chronic Assessment and Plan: Accu-Cheks AC and HS and A1c at 7.1 (9) Elevated troponin: Code(s): R77.8 - Other specified abnormalities of plasma proteins Status: Acute Assessment and Plan: likely due to sepsis with flat cardiac enzymes. No chest pain unlikely to be ACS (10) Bacteremia: Code(s): R78.81 - Bacteremia Status: Acute Assessment and Plan: Gram-negative bacilli Already on Zosyn (11) Diarrhea: Code(s): R19.7 - Diarrhea, unspecified Status: Acute Assessment and Plan: check C diff Additional Plan will plan to remove IJ and Pearson tomorrow if remains stable 03/13/21: Will continue with IV antibiotics. Will monitor culture reports. Will DC Pearson catheter. Scheduled physical therapy. Possible discharge in the morning. 03/14/21: Blood culture and urine culture report noted. Will continue with IV antibiotic. Repeat blood culture and urine culture. Increase activity and start physical therapy. C diff is pending. Subjective Date/time seen: 03/14/21 09:26 Patient was seen during the morning rounds today. F
--- NOTE | 2021-03-14 11:20 | PCNSR ---
On 03/14/21, the student,Tati Rubio, provided care and completed [facility] documentation on this patient. I have reviewed the student's documentation and agree with the findings.
[2021-03-14 11:55] LABS: Glucose Point of Care 185 mg/dl (65-105)
[2021-03-14 16:25] LABS: Glucose Point of Care 192 mg/dl (65-105)
--- NOTE | 2021-03-14 18:46 | PC.NURSE ---
On 03/14/21, the LP RN, Mag Jay, provided care and completed [facility] documentation on this patient. I have reviewed the LP RN's documentation and agree with the findings.
[2021-03-14 22:22] LABS: Glucose Point of Care 220 mg/dl (65-105)
[2021-03-15] VITALS (13 sets, daily range): BP systolic 121–135; BP diastolic 47–54; PULSE 67–99; RESP 16–20; TEMP 36–36.4; O2SAT 92–99
[2021-03-15] MEDS: LACTATED RINGERS 1,000 ML 30 ML IV CONT (05:30)
[2021-03-15] MEDS: CENTRAL LINE FLUSH 10 ML IV PUSH ×4 (05:42→20:37)
[2021-03-15 06:29] LABS: Hematocrit 31.4 % (37.0-47.0); Hemoglobin 10.4 g/dL (12.0-15.0); Mean Corpuscular HGB Conc 33.1 g/dl (32-36); Mean Corpuscular Hemoglobin 30.7 pg (26-34); Mean Corpuscular Volume 92.6 fl (80-100); Platelet Count Result 116 k/mm3 (150-375); Red Blood Count 3.39 M/mm3 (4.2-5.4); Red Cell Distribution Width 13.4 % (11.5-14.5); White Blood Count 6.5 K/mm3 (4.5-10.0)
[2021-03-15 06:36] LABS: Alanine Aminotransferase 52 U/L (4-35); Alkaline Phosphatase 67 U/L (38-126); Anion Gap 6 mmol/L (8-16); Aspartate Amino Transferase 65 U/L (14-36); Bilirubin,Total 0.5 mg/dL (0.2-1.3); Blood Urea Nitrogen 17 mg/dL (7-17); Calcium 8.7 mg/dL (8.4-10.2); Carbon Dioxide 27 mmol/L (22-30); Chloride 103 mmol/L (98-107); Estimated CRCL calculation 44 ml/min; Estimated Glomerular Filt Rate 40; Glucose 184 mg/dL (65-105); Potassium 3.1 mmol/L (3.4-5.0); Sodium 136 mmol/L (137-145)
[2021-03-15 07:33] LABS: Glucose Point of Care 172 mg/dl (65-105)
[2021-03-15] MEDS: POTASSIUM CHLORIDE 20 MEQ TABLET 40 MEQ PO (09:03)
[2021-03-15] MEDS: SERTRALINE HCL 50 MG TABLET 100 MG PO (09:05)
[2021-03-15] MEDS: HEPARIN SODIUM 5,000 UNITS/ML VIAL 5000 UNITS SUB-Q ×2 (09:05→20:37)
[2021-03-15] MEDS: ASPIRIN 81 MG ENTERIC TABLET PO (09:05)
[2021-03-15] MEDS: TOLNAFTATE 1% POWDER 45 GM BTL 1 APPLIC TOPICAL ×2 (09:05→20:39)
[2021-03-15] MEDS: hydroCHLOROthiazide 6.25 MG TABLET PO (09:05)
[2021-03-15] MEDS: ONDANSETRON INJ 4 MG/2 ML VIAL IV PUSH (10:15)
--- NOTE | 2021-03-15 12:46 | PM.IMPN ---
Progress Note: A&P Assessment and Plan (1) Septic shock: Code(s): A41.9 - Sepsis, unspecified organism; R65.21 - Severe sepsis with septic shock Status: Acute Assessment and Plan: IV fluids at 1:20 a.m. 5 cc an hour will lower it to 60 cc an hour. Mildly tachycardic still and febrile Salbador the IV fluids on Hypotension has resolved without IV pressors she is turning positive on her blood culture 03/13/21: Will continue with IV antibiotics and monitor culture reports. 03/15/21 12:46 Patient is 75-year-old morbidly obese female initially admitted with hypotension most likely secondary to sepsis due to UTI, patient urine and blood cultures are positive for E coli pansensitive and being treated with Zosyn, will treat the patient for total of 3/7 days IV antibiotics, patient has been free of fever for now 72 hours, patient is currently participating physical therapy, is feeling much better denies any dysuria, frequency of urination, abdominal pain nausea or vomiting fever or chills, if remains clinically stable patient will complete 7 days of IV antibiotic on March 20 and will discharge the patient. (2) Urinary tract infection: Qualifiers: Hematuria presence: with hematuria Urinary tract infection type: acute cystitis Qualified Code(s): N30.01 - Acute cystitis with hematuria Code(s): N39.0 - Urinary tract infection, site not specified Status: Acute Assessment and Plan: The patient is on Zosyn at this time. blood culture positive for gram-negative bacilli Need to plan to remove the left IJ if it is not needed by tomorrow 03/13/21: Will DC Pearson catheter and continue with IV antibiotics. 03/14/21: Blood culture noted will continue with IV is antibiotic and repeat cultures. (3) Acute renal failure: Qualifiers: Acute renal failure type: unspecified Qualified Code(s): N17.9 - Acute kidney failure, unspecified Code(s): N17.9 - Acute kidney failure, unspecified Status: Acute Assessment and Plan: creatinine on admission 2.8 renal ultrasound negative Likely due to sepsis and dehydration Hold metformin and lisinopril Hold Jardiance due to urine tract infection and discontinue at discharge (4) COPD (chronic obstructive pulmonary disease): Qualifiers: COPD type: unspecified COPD Qualified Code(s): J44.9 - Chronic obstructive pulmonary disease, unspecified Code(s): J44.9 - Chronic obstructive pulmonary disease, unspecified Status: Chronic Assessment and Plan: Will do a Xopenex. (5) Obstructive sleep apnea: Code(s): G47.33 - Obstructive sleep apnea (adult) (pediatric) Status: Chronic Assessment and Plan: Continue with home CPAP. The patient brought her own in with her. (6) HTN (hypertension) with goal to be determined: Code(s): I10 - Essential (primary) hypertension Status: Chronic Assessment and Plan: hold blood pressure medication (7) Acute hypokalemia: Code(s): E87.6 - Hypokalemia Status: Acute Assessment and Plan: replace and monitor (8) Diabetes mellitus: Qualifiers: Diabetes mellitus type: type 2 Diabetes mellitus correction insulin use: without exterminator termite use Diabetes mellitus complication status: with hyperglycemia Qualified Code(s): E11.65 - Type 2 diabetes mellitus with hyperglycemia Code(s): E11.9 - Type 2 diabetes mellitus without complications Status: Chronic Assessment and Plan: Accu-Cheks AC and HS and A1c at 7.1 (9) Elevated troponin: Code(s): R77.8 - Other specified abnormalities of plasma proteins Status: Acute Assessment and Plan: likely due to sepsis with flat cardiac enzymes. No chest pain unlikely to be ACS (10) Bacteremia: Code(s): R78.81 - Bacteremia Status: Acute Assessment and Plan: Gram-negative bacilli Already on Zosyn (11) Diarrhea: Cod
[2021-03-15 13:04] LABS: Glucose Point of Care 197 mg/dl (65-105)
[2021-03-15 18:02] LABS: Glucose Point of Care 220 mg/dl (65-105)
[2021-03-15 18:30] LABS: Glucose Point of Care 186 mg/dl (65-105)
[2021-03-15] MEDS: MELATONIN 3 MG TABLET PO (20:37)
[2021-03-15 21:04] LABS: Glucose Point of Care 282 mg/dl (65-105)
[2021-03-16] VITALS (11 sets, daily range): BP systolic 126–146; BP diastolic 54–59; PULSE 67–101; RESP 16–20; TEMP 36.3–36.5; O2SAT 93–99
[2021-03-16] MEDS: CENTRAL LINE FLUSH 10 ML IV PUSH ×4 (05:50→23:52)
[2021-03-16] MEDS: LACTATED RINGERS 1,000 ML 30 ML IV CONT (05:50)
[2021-03-16 06:31] LABS: Hematocrit 31.5 % (37.0-47.0); Hemoglobin 10.2 g/dL (12.0-15.0); Mean Corpuscular HGB Conc 32.4 g/dl (32-36); Mean Corpuscular Volume 95.7 fl (80-100); Mean Platelet Volume 11.7 fl (7.4-10.4); Platelet Count Result 133 k/mm3 (150-375); Red Blood Count 3.29 M/mm3 (4.2-5.4); Red Cell Distribution Width 13.7 % (11.5-14.5); White Blood Count 6.7 K/mm3 (4.5-10.0)
[2021-03-16 06:48] LABS: Magnesium 1.6 mg/dL (1.6-2.3)
[2021-03-16 08:10] LABS: Glucose Point of Care 190 mg/dl (65-105)
[2021-03-16] MEDS: ASPIRIN 81 MG ENTERIC TABLET PO (08:25)
[2021-03-16] MEDS: hydroCHLOROthiazide 6.25 MG TABLET PO (08:25)
[2021-03-16] MEDS: SERTRALINE HCL 50 MG TABLET 100 MG PO (08:26)
[2021-03-16] MEDS: HEPARIN SODIUM 5,000 UNITS/ML VIAL 5000 UNITS SUB-Q ×2 (08:26→20:27)
[2021-03-16] MEDS: TOLNAFTATE 1% POWDER 45 GM BTL 1 APPLIC TOPICAL ×2 (08:26→20:30)
[2021-03-16 10:12] LABS: Anion Gap 7 mmol/L (8-16); Blood Urea Nitrogen 16 mg/dL (7-17); Calcium 8.8 mg/dL (8.4-10.2); Carbon Dioxide 25 mmol/L (22-30); Chloride 108 mmol/L (98-107); Estimated CRCL calculation 47 ml/min; Estimated Glomerular Filt Rate 44; Glucose 278 mg/dL (65-105); Potassium 3.4 mmol/L (3.4-5.0); Sodium 140 mmol/L (137-145)
--- NOTE | 2021-03-16 10:23 | PM.IMPN ---
Progress Note: A&P Assessment and Plan (1) Septic shock: Code(s): A41.9 - Sepsis, unspecified organism; R65.21 - Severe sepsis with septic shock Status: Acute Assessment and Plan: IV fluids at 1:20 a.m. 5 cc an hour will lower it to 60 cc an hour. Mildly tachycardic still and febrile Salbador the IV fluids on Hypotension has resolved without IV pressors she is turning positive on her blood culture 03/13/21: Will continue with IV antibiotics and monitor culture reports. 03/16/2103/15 Patient is 75-year-old morbidly obese female initially admitted with hypotension most likely secondary to sepsis due to UTI, patient urine and blood cultures are positive for E coli pansensitive and being treated with Zosyn, will treat the patient for total of 3/7 days IV antibiotics, patient has been free of fever for now 72 hours, patient is currently participating physical therapy, is feeling much better denies any dysuria, frequency of urination, abdominal pain nausea or vomiting fever or chills, if remains clinically stable patient will complete 7 days of IV antibiotic on March 20 and will discharge the patient. Patient has no new complaint been afebrile for more than 72 hours, clinically stable, today patient complete the 4th today 7 days IV antibiotic, will continue physical therapy will continue to monitor and plan is to discharge patient once he completed 7 days IV antibiotic course. (2) Urinary tract infection: Qualifiers: Hematuria presence: with hematuria Urinary tract infection type: acute cystitis Qualified Code(s): N30.01 - Acute cystitis with hematuria Code(s): N39.0 - Urinary tract infection, site not specified Status: Acute Assessment and Plan: The patient is on Zosyn at this time. blood culture positive for gram-negative bacilli Need to plan to remove the left IJ if it is not needed by tomorrow 03/13/21: Will DC Pearson catheter and continue with IV antibiotics. 03/14/21: Blood culture noted will continue with IV is antibiotic and repeat cultures. (3) Acute renal failure: Qualifiers: Acute renal failure type: unspecified Qualified Code(s): N17.9 - Acute kidney failure, unspecified Code(s): N17.9 - Acute kidney failure, unspecified Status: Acute Assessment and Plan: creatinine on admission 2.8 renal ultrasound negative Likely due to sepsis and dehydration Hold metformin and lisinopril Hold Jardiance due to urine tract infection and discontinue at discharge (4) COPD (chronic obstructive pulmonary disease): Qualifiers: COPD type: unspecified COPD Qualified Code(s): J44.9 - Chronic obstructive pulmonary disease, unspecified Code(s): J44.9 - Chronic obstructive pulmonary disease, unspecified Status: Chronic Assessment and Plan: Will do a Xopenex. (5) Obstructive sleep apnea: Code(s): G47.33 - Obstructive sleep apnea (adult) (pediatric) Status: Chronic Assessment and Plan: Continue with home CPAP. The patient brought her own in with her. (6) HTN (hypertension) with goal to be determined: Code(s): I10 - Essential (primary) hypertension Status: Chronic Assessment and Plan: hold blood pressure medication (7) Acute hypokalemia: Code(s): E87.6 - Hypokalemia Status: Acute Assessment and Plan: replace and monitor (8) Diabetes mellitus: Qualifiers: Diabetes mellitus type: type 2 Diabetes mellitus terminal worker insulin use: without terminal worker use Diabetes mellitus complication status: with hyperglycemia Qualified Code(s): E11.65 - Type 2 diabetes mellitus with hyperglycemia Code(s): E11.9 - Type 2 diabetes mellitus without complications Status: Chronic Assessment and Plan: Accu-Cheks AC and HS and A1c at 7.1 (9) Elevated troponin: Code(s): R77.8 - Other specified abnormalities of plasma proteins Status: Acute
[2021-03-16 11:36] LABS: Glucose Point of Care 291 mg/dl (65-105)
[2021-03-16] MEDS: INSULIN ASPART (*BKC) 100 UNITS/ML SUB-Q ×2 (12:40→17:33)
[2021-03-16 17:59] LABS: Glucose Point of Care 207 mg/dl (65-105)
[2021-03-16] MEDS: MELATONIN 3 MG TABLET PO (20:28)
[2021-03-16 20:52] LABS: Glucose Point of Care 287 mg/dl (65-105)
[2021-03-17] VITALS (9 sets, daily range): BP systolic 136–160; BP diastolic 44–61; PULSE 62–85; RESP 16–20; TEMP 36.3–36.4; O2SAT 94–98
[2021-03-17] MEDS: LACTATED RINGERS 1,000 ML 30 ML IV CONT (06:08)
[2021-03-17 06:35] LABS: Hematocrit 29.8 % (37.0-47.0); Hemoglobin 9.9 g/dL (12.0-15.0); Mean Corpuscular HGB Conc 33.2 g/dl (32-36); Mean Corpuscular Hemoglobin 30.8 pg (26-34); Mean Corpuscular Volume 92.8 fl (80-100); Mean Platelet Volume 11.2 fl (7.4-10.4); Platelet Count Result 156 k/mm3 (150-375); Red Blood Count 3.21 M/mm3 (4.2-5.4); Red Cell Distribution Width 13.5 % (11.5-14.5); White Blood Count 6.2 K/mm3 (4.5-10.0)
[2021-03-17 06:50] LABS: Anion Gap 5 mmol/L (8-16); Blood Urea Nitrogen 14 mg/dL (7-17); Calcium 8.8 mg/dL (8.4-10.2); Carbon Dioxide 29 mmol/L (22-30); Chloride 105 mmol/L (98-107); Estimated CRCL calculation 51 ml/min; Estimated Glomerular Filt Rate 49; Glucose 185 mg/dL (65-105); Magnesium 1.6 mg/dL (1.6-2.3); Potassium 3.3 mmol/L (3.4-5.0); Sodium 139 mmol/L (137-145)
[2021-03-17 08:35] LABS: Glucose Point of Care 202 mg/dl (65-105)
[2021-03-17] MEDS: HEPARIN SODIUM 5,000 UNITS/ML VIAL 5000 UNITS SUB-Q ×2 (08:39→21:01)
[2021-03-17] MEDS: ASPIRIN 81 MG ENTERIC TABLET PO (08:39)
[2021-03-17] MEDS: SERTRALINE HCL 50 MG TABLET 100 MG PO (08:39)
[2021-03-17] MEDS: TOLNAFTATE 1% POWDER 45 GM BTL 1 APPLIC TOPICAL ×2 (08:39→21:02)
[2021-03-17] MEDS: hydroCHLOROthiazide 6.25 MG TABLET PO (08:39)
[2021-03-17] MEDS: INSULIN ASPART (*BKC) 100 UNITS/ML SUB-Q ×2 (08:40→12:49)
[2021-03-17] MEDS: CENTRAL LINE FLUSH 10 ML IV PUSH ×4 (08:41→21:03)
[2021-03-17 11:56] LABS: Glucose Point of Care 310 mg/dl (65-105)
[2021-03-17] MEDS: POTASSIUM CHLORIDE 20 MEQ TABLET 40 MEQ PO (12:49)
--- NOTE | 2021-03-17 14:57 | PM.IMPN ---
Progress Note: A&P Assessment and Plan (1) Septic shock: Code(s): A41.9 - Sepsis, unspecified organism; R65.21 - Severe sepsis with septic shock Status: Acute Assessment and Plan: IV fluids at 1:20 a.m. 5 cc an hour will lower it to 60 cc an hour. Mildly tachycardic still and febrile Salbador the IV fluids on Hypotension has resolved without IV pressors she is turning positive on her blood culture 03/13/21: Will continue with IV antibiotics and monitor culture reports. 03/17/21 14:57 03/15 Patient is 75-year-old morbidly obese female initially admitted with hypotension most likely secondary to sepsis due to UTI, patient urine and blood cultures are positive for E coli pansensitive and being treated with Zosyn, will treat the patient for total of 3/7 days IV antibiotics, patient has been free of fever for now 72 hours, patient is currently participating physical therapy, is feeling much better denies any dysuria, frequency of urination, abdominal pain nausea or vomiting fever or chills, if remains clinically stable patient will complete 7 days of IV antibiotic on March 20 and will discharge the patient. 03/16 Patient has no new complaint been afebrile for more than 72 hours, clinically stable, today patient complete the 4th today 7 days IV antibiotic, will continue physical therapy will continue to monitor and plan is to discharge patient once he completed 7 days IV antibiotic course. 03/17 Patient has no new complaint been afebrile for more than 84 hours, clinically stable, today patient complete the 5th day of 7 days IV antibiotic, will continue physical therapy will continue to monitor and plan is to discharge patient once he completed 7 days IV antibiotic course March 19 . (2) Urinary tract infection: Qualifiers: Hematuria presence: with hematuria Urinary tract infection type: acute cystitis Qualified Code(s): N30.01 - Acute cystitis with hematuria Code(s): N39.0 - Urinary tract infection, site not specified Status: Acute Assessment and Plan: The patient is on Zosyn at this time. blood culture positive for gram-negative bacilli Need to plan to remove the left IJ if it is not needed by tomorrow 03/13/21: Will DC Pearson catheter and continue with IV antibiotics. 03/14/21: Blood culture noted will continue with IV is antibiotic and repeat cultures. (3) Acute renal failure: Qualifiers: Acute renal failure type: unspecified Qualified Code(s): N17.9 - Acute kidney failure, unspecified Code(s): N17.9 - Acute kidney failure, unspecified Status: Acute Assessment and Plan: creatinine on admission 2.8 renal ultrasound negative Likely due to sepsis and dehydration Hold metformin and lisinopril Hold Jardiance due to urine tract infection and discontinue at discharge (4) COPD (chronic obstructive pulmonary disease): Qualifiers: COPD type: unspecified COPD Qualified Code(s): J44.9 - Chronic obstructive pulmonary disease, unspecified Code(s): J44.9 - Chronic obstructive pulmonary disease, unspecified Status: Chronic Assessment and Plan: Will do a Xopenex. (5) Obstructive sleep apnea: Code(s): G47.33 - Obstructive sleep apnea (adult) (pediatric) Status: Chronic Assessment and Plan: Continue with home CPAP. The patient brought her own in with her. (6) HTN (hypertension) with goal to be determined: Code(s): I10 - Essential (primary) hypertension Status: Chronic Assessment and Plan: hold blood pressure medication (7) Acute hypokalemia: Code(s): E87.6 - Hypokalemia Status: Acute Assessment and Plan: replace and monitor (8) Diabetes mellitus: Qualifiers: Diabetes mellitus type: type 2 Diabetes mellitus group home insulin use: without ocean transportation intermediary use Diabetes mellitus complication status: with hyperglycemia Qualified Code(s): E11.65 - Type 2 diab
[2021-03-17 17:14] LABS: Glucose Point of Care 185 mg/dl (65-105)
[2021-03-17] MEDS: MELATONIN 3 MG TABLET PO (21:02)
[2021-03-17 21:11] LABS: Glucose Point of Care 246 mg/dl (65-105)
[2021-03-18] VITALS (9 sets, daily range): BP systolic 148–169; BP diastolic 51–59; PULSE 62–76; RESP 16; TEMP 36.1–36.4; O2SAT 94–97
[2021-03-18] MEDS: CENTRAL LINE FLUSH 20 ML IV PUSH (05:11)
[2021-03-18] MEDS: CENTRAL LINE FLUSH 10 ML IV PUSH ×4 (05:35→20:43)
[2021-03-18 05:42] LABS: Hematocrit 30.6 % (37.0-47.0); Hemoglobin 9.9 g/dL (12.0-15.0); Mean Corpuscular HGB Conc 32.4 g/dl (32-36); Mean Corpuscular Hemoglobin 30.7 pg (26-34); Mean Corpuscular Volume 94.7 fl (80-100); Mean Platelet Volume 11.2 fl (7.4-10.4); Platelet Count Result 179 k/mm3 (150-375); Red Blood Count 3.23 M/mm3 (4.2-5.4); Red Cell Distribution Width 13.2 % (11.5-14.5)
[2021-03-18 05:58] LABS: Anion Gap 4 mmol/L (8-16); Blood Urea Nitrogen 12 mg/dL (7-17); Calcium 8.5 mg/dL (8.4-10.2); Carbon Dioxide 28 mmol/L (22-30); Chloride 107 mmol/L (98-107); Estimated CRCL calculation 51 ml/min; Estimated Glomerular Filt Rate 49; Glucose 213 mg/dL (65-105); Potassium 3.6 mmol/L (3.4-5.0); Sodium 139 mmol/L (137-145)
[2021-03-18 07:07] LABS: Magnesium 1.5 mg/dL (1.6-2.3)
[2021-03-18 08:06] LABS: Glucose Point of Care 214 mg/dl (65-105)
[2021-03-18] MEDS: HEPARIN SODIUM 5,000 UNITS/ML VIAL 5000 UNITS SUB-Q ×2 (08:18→20:42)
[2021-03-18] MEDS: SERTRALINE HCL 50 MG TABLET 100 MG PO (08:18)
[2021-03-18] MEDS: hydroCHLOROthiazide 6.25 MG TABLET PO (08:19)
[2021-03-18] MEDS: ASPIRIN 81 MG ENTERIC TABLET PO (08:19)
[2021-03-18] MEDS: TOLNAFTATE 1% POWDER 45 GM BTL 1 APPLIC TOPICAL ×2 (08:21→20:42)
[2021-03-18] MEDS: INSULIN ASPART (*BKC) 100 UNITS/ML SUB-Q ×3 (08:21→17:45)
[2021-03-18 12:28] LABS: Glucose Point of Care 294 mg/dl (65-105)
--- NOTE | 2021-03-18 13:35 | PCNFU ---
Nutrition Follow-Up Complete: Altered nutritional status related to septic shock as evidence by elevated troponin levels and and unintended weight loss of 13 pounds in 4 weeks. Goal: Meet estimated nutritional needs. Patient is currently meeting goal. Will continue to meet goal. Pt current nutrition is DBCC. Last recorded weight is 118.2 kg. Bowel Motility: Last BM: 03/17 Labs Reviewed: Hgb 9.9, Hct 30.6, Na 139, K 3.6, GFR 49, BUN 12, Cr 1.1, Glu 213 Meds Noted: Aspirin, Heparin, Hydrochlorothiazide, Novolog, Lactated Ringers, Xopenex, Zosyn, Zoloft, Tolnaftate, Central line flush. Additional Notes: Patient is consuming 100% of meals. Patient reports having an improved appetite. Providing oral nutritional supplement to support nutritional needs. Will continue to monitor weight and nutritional status. Follow up in 5 days.
--- NOTE | 2021-03-18 13:48 | PM.IMPN ---
Progress Note: A&P Assessment and Plan (1) Septic shock: Code(s): A41.9 - Sepsis, unspecified organism; R65.21 - Severe sepsis with septic shock Status: Acute Assessment and Plan: IV fluids at 1:20 a.m. 5 cc an hour will lower it to 60 cc an hour. Mildly tachycardic still and febrile Salbador the IV fluids on Hypotension has resolved without IV pressors she is turning positive on her blood culture 03/13/21: Will continue with IV antibiotics and monitor culture reports. 03/18/21 13:48 03/15 Patient is 75-year-old morbidly obese female initially admitted with hypotension most likely secondary to sepsis due to UTI, patient urine and blood cultures are positive for E coli pansensitive and being treated with Zosyn, will treat the patient for total of 3/7 days IV antibiotics, patient has been free of fever for now 72 hours, patient is currently participating physical therapy, is feeling much better denies any dysuria, frequency of urination, abdominal pain nausea or vomiting fever or chills, if remains clinically stable patient will complete 7 days of IV antibiotic on March 20 and will discharge the patient. 03/16 Patient has no new complaint been afebrile for more than 72 hours, clinically stable, today patient complete the 4th today 7 days IV antibiotic, will continue physical therapy will continue to monitor and plan is to discharge patient once he completed 7 days IV antibiotic course. 03/17 Patient has no new complaint been afebrile for more than 84 hours, clinically stable, today patient complete the 5th day of 7 days IV antibiotic, will continue physical therapy will continue to monitor and plan is to discharge patient once he completed 7 days IV antibiotic course March 19. 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 Patient stated last it was evaluated it was in 2010 and since her primary care retired no one has checked it, I asked our radiology depart to send the images to [facility], I called transfer line [phone] and they connected me to Dr. Jasson Sterling who had reviewed the images and stated since patient does not have any pain she can follow up in his office and he gave me his office number to call appointment [phone], I gave the number to the patient to make an appointment as she can provider her personal information SS, and insurance ID numbers, today I went to talk to the patient who had received call from Dr Sterling and has an appointment consultation, patient is sitting in the chair and smiling and has no complaints of abdominal pain, and does not appear in any distress, her nurse is present in the room, however daughter is present who is very rude, and difficulty to communicate, In my opinion patient daughter had inappropriate unnecessary aggressive behavior her mother who is the patient is trying to calm her daughter. will monitor patient overnight, patient will get two doses of Zosyn tomorrow and will discharge patient home. (2) Urinary tract infection: Qualifiers: Hematuria presence: with hematuria Urinary tract infection type: acute cystitis Qualified Code(s): N30.01 - Acute cystitis with hematuria Code(s): N39.0 - Urinary tract infection, site not specified Status: Acute Assessment and Plan: The patient is on Zosyn at this time. blood culture positive for gram-negative bacilli Need to plan to remove the left IJ if it is not needed by tomorrow 03/13/21: Will DC Pearson catheter and c
--- NOTE | 2021-03-18 13:49 | PCNSR ---
On 03/18/21, the student, [Tati Rubio], provided care and completed [facility] documentation on this patient. I have reviewed the student's documentation and agree with the findings.
[2021-03-18 15:45] LABS: IFOB Positive Control Positive
[2021-03-18 15:47] LABS: Immunochemical Fecal Occult Bl Negative (N)
[2021-03-18 17:37] LABS: Glucose Point of Care 241 mg/dl (65-105)
[2021-03-18] MEDS: LACTATED RINGERS 1,000 ML 30 ML IV CONT (17:47)
--- NOTE | 2021-03-18 18:15 | PC.NURSE ---
The patient's daughter Ronit called me and notified me of some concerns that she had regarding the patient. The family member was displeased with the patient's experience in the ER. The daughter was unhappy that the patient did not have a glucometer at home and is expected to check her blood sugar at home once discharged. I discussed this with Dr. Traore who stated he would be happy to get that set up at home for her. Dr. Traore discussed this with the patient. The daughter was unhappy due to the fact that we do not have a vascular surgeon who is able to address the patient's AAA. Dr. Traore set up a referral to Dr. Sterling at [facility] vascular surgery. The patient was able to call the office and get an appointment next week for follow up. The daughter complained that the patient has been in pain and has not received pain medications. Upon assessment of the patient on multiple occasions the patient denies pain and need for pain medications. The daughter stated that the patient will not request pain medications even if she is in pain and requested that we assess nonverbal pain cues. Patient is alert and oriented and able to express concerns. The patient is not showing any nonverbal signs of pain. The patient has been very upbeat and joking with staff all day. Patient has zero complaints about her care or pain. I discussed in detail with the patient the need to express to me if she has pain. Discussed care with patient who stated I feel like I am getting great care. my daughter just goes overboard because of her medical experience . The daughter was verbally aggressive to Dr. Traore when discussing care. The patient continues to ask the daughter to stop yelling at the doctor and stated that is enough . Patient notified Dr. Traore that she feels great and has no complaints. I went into detail with the daughter about the patient's antibiotics and labs. The daughter stated that she was very unhappy with the ER and ICU. She stated she was going to call [facility]. I discussed this with the patient advocate who has been in contact with the patient. I spoke with the patient about the need to speak to our patient advocate. The patient stated she has no complaints that she needs to talk to the patient advocate about, but stated that her daughter is the one who had the complaints. Dr. Traore and I answered all of the daughters questions and I encouraged her to call me if she has anymore questions.
[2021-03-18] MEDS: MELATONIN 3 MG TABLET PO (20:43)
[2021-03-18 20:48] LABS: Glucose Point of Care 316 mg/dl (65-105)
[2021-03-19 00:11] VITALS: PULSE 72; RESP 18
[2021-03-19 00:21] VITALS: PULSE 77; RESP 16
[2021-03-19 04:59] LABS: Hematocrit 31.1 % (37.0-47.0); Hemoglobin 9.9 g/dL (12.0-15.0); Mean Corpuscular HGB Conc 31.8 g/dl (32-36); Mean Corpuscular Hemoglobin 30.4 pg (26-34); Mean Corpuscular Volume 95.4 fl (80-100); Mean Platelet Volume 10.2 fl (7.4-10.4); Platelet Count Result 210 k/mm3 (150-375); Red Blood Count 3.26 M/mm3 (4.2-5.4); Red Cell Distribution Width 13.4 % (11.5-14.5); White Blood Count 6.2 K/mm3 (4.5-10.0)
[2021-03-19 05:11] LABS: Anion Gap 7 mmol/L (8-16); Blood Urea Nitrogen 9 mg/dL (7-17); Calcium 8.4 mg/dL (8.4-10.2); Carbon Dioxide 28 mmol/L (22-30); Chloride 104 mmol/L (98-107); Estimated CRCL calculation 56 ml/min; Estimated Glomerular Filt Rate 54; Glucose 216 mg/dL (65-105); Magnesium 1.5 mg/dL (1.6-2.3); Potassium 3.3 mmol/L (3.4-5.0); Sodium 139 mmol/L (137-145)
[2021-03-19] MEDS: CENTRAL LINE FLUSH 10 ML IV PUSH (05:42)
[2021-03-19 06:00] VITALS: BP 175/60; PULSE 64; RESP 16; TEMP 36.1; O2SAT 97
[2021-03-19 07:46] VITALS: PULSE 74; RESP 16; O2SAT 96
[2021-03-19 07:59] VITALS: PULSE 76; RESP 16
[2021-03-19 08:45] LABS: Glucose Point of Care 235 mg/dl (65-105)
[2021-03-19] MEDS: ASPIRIN 81 MG ENTERIC TABLET PO (09:07)
[2021-03-19] MEDS: hydroCHLOROthiazide 6.25 MG TABLET PO (09:07)
[2021-03-19] MEDS: SERTRALINE HCL 50 MG TABLET 100 MG PO (09:07)
[2021-03-19] MEDS: HEPARIN SODIUM 5,000 UNITS/ML VIAL 5000 UNITS SUB-Q (09:07)
[2021-03-19] MEDS: INSULIN ASPART (*BKC) 100 UNITS/ML SUB-Q ×3 (09:12→16:49)
[2021-03-19] MEDS: MAGNESIUM SULF 2 GM/WATER 50ML 2 GM/50 ML BAG IVPB (09:24)
[2021-03-19] MEDS: POTASSIUM CHLORIDE 20 MEQ TABLET 40 MEQ PO (09:24)
[2021-03-19 12:04] LABS: Glucose Point of Care 309 mg/dl (65-105)
[2021-03-19] MEDS: TOLNAFTATE 1% POWDER 45 GM BTL 1 APPLIC TOPICAL (12:21)
--- NOTE | 2021-03-19 12:38 | PCOTNOTE ---
Attempted to see Pt for OT tx this AM. Pt declined to participate in therapy, stating that she will be discharging as soon as her antibiotic is given. Pt stated that she does not have questions or concerns at this time. If pt does not d/c today, will continue per POC frequency and duration tomorrow.
--- NOTE | 2021-03-19 13:49 | PCPTNOTE ---
Attempted to see patient for physical therapy session this date at 0953 and 1349. Patient declined both attempts, stating she was getting ready to go home. If patient is not discharged this afternoon, therapy will attempt again tomorrow.
[2021-03-19 14:00] VITALS: BP 173/51; PULSE 78; RESP 18; TEMP 36.1; O2SAT 97
[2021-03-19 15:02] LABS: Anion Gap 7 mmol/L (8-16); Blood Urea Nitrogen 9 mg/dL (7-17); Calcium 8.5 mg/dL (8.4-10.2); Carbon Dioxide 28 mmol/L (22-30); Chloride 104 mmol/L (98-107); Estimated CRCL calculation 62 ml/min; Estimated Glomerular Filt Rate > 60; Glucose 229 mg/dL (65-105); Potassium 3.5 mmol/L (3.4-5.0); Sodium 139 mmol/L (137-145)
--- NOTE | 2021-03-19 15:52 | PM.DS ---
DS: Admitting Diagnosis Admitting Diagnosis Admitting Diagnosis: weakness DS: Discharge Diagnosis Discharge Diagnosis (1) Septic shock: Code(s): A41.9 - Sepsis, unspecified organism; R65.21 - Severe sepsis with septic shock Status: Acute Assessment and Plan: IV fluids at 1:20 a.m. 5 cc an hour will lower it to 60 cc an hour. Mildly tachycardic still and febrile Salbador the IV fluids on Hypotension has resolved without IV pressors she is turning positive on her blood culture 03/13/21: Will continue with IV antibiotics and monitor culture reports. 03/18/21 13:48 03/15 Patient is 75-year-old morbidly obese female initially admitted with hypotension most likely secondary to sepsis due to UTI, patient urine and blood cultures are positive for E coli pansensitive and being treated with Zosyn, will treat the patient for total of 3/7 days IV antibiotics, patient has been free of fever for now 72 hours, patient is currently participating physical therapy, is feeling much better denies any dysuria, frequency of urination, abdominal pain nausea or vomiting fever or chills, if remains clinically stable patient will complete 7 days of IV antibiotic on March 20 and will discharge the patient. 03/16 Patient has no new complaint been afebrile for more than 72 hours, clinically stable, today patient complete the 4th today 7 days IV antibiotic, will continue physical therapy will continue to monitor and plan is to discharge patient once he completed 7 days IV antibiotic course. 03/17 Patient has no new complaint been afebrile for more than 84 hours, clinically stable, today patient complete the 5th day of 7 days IV antibiotic, will continue physical therapy will continue to monitor and plan is to discharge patient once he completed 7 days IV antibiotic course March 19. 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 Patient stated last it was evaluated it was in 2010 and since her primary care retired no one has checked it, I asked our radiology depart to send the images to [facility], I called transfer line [phone] and they connected me to Dr. Jasson Sterling who had reviewed the images and stated since patient does not have any pain she can follow up in his office and he gave me his office number to call appointment [phone], I gave the number to the patient to make an appointment as she can provider her personal information SS, and insurance ID numbers, today I went to talk to the patient who had received call from Dr Sterling and has an appointment consultation, patient is sitting in the chair and smiling and has no complaints of abdominal pain, and does not appear in any distress, her nurse is present in the room, however daughter is present who is very rude, and difficulty to communicate, In my opinion patient daughter had inappropriate unnecessary aggressive behavior her mother who is the patient is trying to calm her daughter. will monitor patient overnight, patient will get two doses of Zosyn tomorrow and will discharge patient home. (2) Urinary tract infection: Qualifiers: Hematuria presence: with hematuria Urinary tract infection type: acute cystitis Qualified Code(s): N30.01 - Acute cystitis with hematuria Code(s): N39.0 - Urinary tract infection, site not specified Status: Acute Assessment and Plan: The patient is on Zosyn at this time. blood culture positive for gram-negative bacilli Need to plan to remov
[2021-03-19 16:40] LABS: Glucose Point of Care 215 mg/dl (65-105)
== END 2021-03-19 17:55 | disposition home health service (06) | DRG 871 ==
LOC: ANHED 14:50 → ANH2MED 03-15 14:00 → ANHICU 03-21 16:22
PROVIDERS: Emergency Medicine; Internal Medicine; Nurse Practitioner; Admitting Provider Internal Medicine; Emergency Provider Emergency Medicine; PCP Physician Assistant; Visit Provider Family Medicine
DX: A41.51 Sepsis due to Escherichia coli [E. coli] (principal); R65.21 Severe sepsis with septic shock; N39.0 Urinary tract infection, site not specified; N17.9 Acute kidney failure, unspecified; Z68.41 Body mass index [BMI] 40.0-44.9, adult; E66.01 Morbid (severe) obesity due to excess calories; J44.9 Chronic obstructive pulmonary disease, unspecified; G47.33 Obstructive sleep apnea (adult) (pediatric); E11.65 Type 2 diabetes mellitus with hyperglycemia; E86.0 Dehydration; E87.6 Hypokalemia; I10 Essential (primary) hypertension; Z85.42 Personal history of malignant neoplasm of other parts of uterus; Z90.49 Acquired absence of other specified parts of digestive tract; Z90.710 Acquired absence of both cervix and uterus; Z87.891 Personal history of nicotine dependence
CPT/HCPCS: 36415; 36556; 36600; 51702; 71046; 74018; 74174; 76775; 80048; 80053; 81001; 82274; 82375; 82805; 82948; 83036; 83050; 83605; 83735; 83880; 84443; 84484; 85025; 85027; 87040; 87077; 87086; 87088; 87186; 87324; 93005; 93306; 94640; 94660; 96361; 96365; 97110; 97116; 97161; 97165; 97530; 97535; 99291; A9270; C1751; C8929; J0131; J1644; J1815; J2405; J2543; J3475; J3480; J7030; J7120; Q9957; Q9967

== ENCOUNTER 2021-12-20 13:15 | Outpatient (CLI) | payer MEDICARE, BC, SELFPAY ==
--- NOTE | ~2021-12-20 | MR_ITS ---
EXAMINATION: MR abdomen wo/w con DATE: 12/20/2021 15:17 INDICATION: Liver disease, unspecified. TECHNIQUE: Magnetic resonance imaging (MRI) of the abdomen was performed without and with 20 mL Multi Reji intravenous contrast. Sequences included coronal T2-weighted FS FSE, coronal and axial FS FIEST A, axial T2-weighted FSE, coronal LAVA-flex, axial STIR FSE, axial DWI, axial dual-echo T1-weighted F SPGR, and axial LAVA. Postcontrast sequences included coronal LAVA-flex and a time course of axial LA VA. COMPARISON: CT abdomen and pelvis 03/17/2021 FINDINGS: The liver demonstrates surface nodularity, consistent with cirrhosis. In the right hepatic lobe, ther e is a 6.9 x 5.1 cm mass with peripheral and central arterial hyperenhancement without washout and ar eas of necrosis. There is mild splenomegaly. There are changes of cholecystectomy. The pancreas and a drenal glands are normal. There is cortical thinning of the kidneys. There is a 6.3 x 5.8 cm eccentri c aneurysm of abdominal aorta with stent graft. There is enhancement in the right anterior aspect of the aneurysm sac, consistent with endoleak. There are no dilated loops of bowel. There is right parac ardial, periportal, aortocaval, and left paracolic lymphadenopathy. The largest periportal node measu res 2.8 x 2.0 cm. There is no free intraperitoneal fluid. IMPRESSION: 1. New 6.9 x 5.1 cm liver mass. The differential diagnosis includes hepatocellular carcinoma, metasta tic disease, and abscess. 2. Cirrhosis of the liver with portal venous hypertension. 3. 6.3 x 5.8 cm eccentric aneurysm of abdominal aorta with stent graft and endoleak, stable in size f rom 03/17/2021. 4. Abdominal and chest lymphadenopathy. Reviewed, dictated and finalized at location A. IMPRESSION: 1. New 6.9 x 5.1 cm liver mass. The differential diagnosis includes hepatocellu lar carcinoma, metastatic disease, and abscess. 2. Cirrhosis of the liver with portal venous hypertension. 3. 6.3 x 5.8 cm eccentric aneurysm of abdominal aorta with stent graft and endo leak, stable in size from 03/17/2021. 4. Abdominal and chest lymphadenopathy.
[2021-12-20 14:21] LABS: Estimated Glomerular Filt Rate 40
== END 2021-12-20 13:16 | disposition home or self-care (01) ==
PROVIDERS: PCP Physician Assistant; Visit Provider Physician Assistant
DX: K76.9 Liver disease, unspecified (principal); R16.0 Hepatomegaly, not elsewhere classified; R16.1 Splenomegaly, not elsewhere classified; K74.60 Unspecified cirrhosis of liver; R59.1 Generalized enlarged lymph nodes
CPT/HCPCS: 74183; A9577

== ENCOUNTER 2022-04-05 15:20 | Inpatient (IN) | payer MEDICARE, BC, SELFPAY ==
--- NOTE | ~2022-04-05 | CT_ITS ---
EXAMINATION: CT abdomen pelvis w con DATE: 04/05/2022 21:00 INDICATION: Abdominal pain and bloating. Elevated liver function tests. TECHNIQUE: Computed tomography (CT) of the abdomen and pelvis was performed with 100 mL Omnipaque-300 intravenous contrast. Automated exposure control and iterative reconstruction technique were employe d. The dose-length product was 1291.99 mGy-cm. COMPARISON: MRI dated 12/20/[address] dated 03/17/2021 FINDINGS: Numerous subcentimeter nodules scattered throughout the bilateral lower lungs with random distributio n consistent with metastatic disease. Heart size is normal. Atherosclerotic coronary artery calcifica tions. No pericardial or pleural effusion. Interval increase in size of a now 8.4 x 6.7 cm heterogene ously hypodense/hypoenhancing mass centered in the right hepatic lobe. Lobular margins of the mass ar e somewhat ill-defined transitioning to a few small peripheral satellite nodules. There is an additio nal 1.5 cm hypoenhancing nodule more at the junction of segments 4A and 4B. There is a somewhat nodul ar surface to the liver suggesting the mass represents primary hepatocellular carcinoma in the settin g of underlying cirrhosis. Cholecystectomy clips the gallbladder fossa. Spleen, pancreas, bilateral a drenal glands are normal. 1 cm right renal cyst. There are small regions of cortical scarring in both kidneys. There is a likely embolization coil along one of the branches of the left renal artery supp lying the anterior lower pole where there is one of such regions of cortical scarring. Aorta biiliac stent grafting extending to the bifurcation the bilateral common iliac arteries. This spans a 6.1 x 6 .0 cm fusiform infrarenal abdominal aortic aneurysm with persistent small type II endoleak, both the size and endoleak without significant change since the prior MRI. Interval enlargement in several per iportal, portacaval and para-aortic lymph nodes, a few of the larger with heterogeneous enhancement s uspicious for metastatic disease. Bladder is normal. The uterus is not identified and has likely been surgically resected. Mild diverticulosis along the descending and sigmoid colon without adjacent inf lammatory change to suggest diverticulitis. Normal appendix. There are a few small fat-containing teja tral hernias along a midline surgical scar at the lower abdomen. No free intraperitoneal gas or fluid . Mild thoracolumbar levocurvature with moderate severe spondylosis. Anterior and posterior spinal fu don at L5-S1. There are also bridging osteophytes at multiple levels in the lower thoracic spine, co nsistent with diffuse idiopathic skeletal hyperostosis (DISH). T12 hemangioma and small bone island a t the right femoral head. No other suspicious lytic or blastic bone lesions. IMPRESSION: 1. Cirrhosis with enlargement of a 8.4 x 6.7 cm mass in the right hepatic lobe concerning for primary hepatocellular carcinoma. 2. She additional smaller hepatic nodules, multiple new subcentimeter pulmonary nodules and enlarging periportal, portacaval and periaortic lymphadenopathy, all suspicious for metastatic disease. 3. No significant interval change in a 6.1 cm fusiform infrarenal abdominal aortic aneurysm with smal l endoleak. Reviewed, dictated and finalized at location A. IMPRESSION: 1. Cirrhosis with enlargement of a 8.4 x 6.7 cm mass in the right hepatic lobe concerning for primary hepatocellular carcinoma. 2. She additional smaller hepatic nodules, multiple new subcentimeter pulmonary nodules and enlarging periportal, portacaval and periaortic lymphadenopathy, a ll suspicious for metastatic disease. 3. No significant interval change in a 6.1 cm fusiform infrarenal abdominal aor tic aneurysm with small endoleak.
--- NOTE | ~2022-04-05 | US_ITS ---
EXAMINATION: US venous doppler [facility] DATE: 04/06/2022 11:41 INDICATION: Lower limb swelling TECHNIQUE: Grayscale ultrasound images without and with compression and Doppler ultrasound images of the bilateral lower extremity veins were obtained. COMPARISON: None. FINDINGS: The visualized portions of right common femoral vein, profunda (deep) femoral vein, femoral vein, pop liteal vein, posterior tibial veins, peroneal veins, gastrocnemius vein and greater saphenous vein ou tflow are patent. The visualized portions of left common femoral vein, profunda femoral vein, femoral vein, popliteal v ein, posterior tibial veins, peroneal veins, gastrocnemius vein and greater saphenous vein outflow ar e patent. IMPRESSION: 1. No deep venous thrombosis in either lower limb. Reviewed, dictated and finalized at location A.
--- NOTE | ~2022-04-05 | MR_ITS ---
EXAMINATION: MR abdomen wo/w con INDICATION: Liver mass TECHNIQUE: Coronal SSFSE ARC, WATER:coronal LAVA-FLEX, Coronal 2D FIESTA FatSat, Axial SSFSE BH ARC, Axial 3D DualEcho BH, Axial SSFSE-IR, Axial DWI b=500, Axial 2D FIESTA FatSat, pre and dynamic postco ntrast Axial LAVA ARC, postcontrast Coronal In and Opposed phase LAVA FLEX COMPARISON: 12/20/2021 CONTRAST: Multihance, 20 cc FINDINGS: There is an approximately 9.7 x 7.5 cm mass in liver segment VII which demonstrates mild T2 hyperintensity and T1 hypointensity on precontrast images. Areas of increased T2 signal intensity wi th corresponding low T1 signal intensity in the central mass are consistent with necrosis. The mass d emonstrates lacelike reticular enhancement and progressive postcontrast sequences. There has been int erval enlargement since the comparison MRI. There are at least five additional satellite lesions in t he liver, some of which are only appreciated on diffusion weighted imaging. There is nodularity of th e liver surface. There is epigastric and retroperitoneal lymphadenopathy. There are multiple pulmonar y nodules in the visualized lung bases. The spleen, pancreas, and adrenal glands are normal. The gall bladder is surgically absent. Cysts of the kidneys measure up to 10 mm on the left. There are no dila sohail loops of bowel.. There are no dilated loops of bowel. There is a 6.1 cm fusiform infrarenal abdom inal aortic aneurysm. There is a 1.5 cm rim-enhancing lesion of the left sacrum. IMPRESSION: 1. Liver mass with interval enlargement since the comparison MRI. Differential includes hepatocellula r carcinoma, cholangiocarcinoma, or biphenotypic tumor. 2. Multiple lung nodules, upper abdominal lymphadenopathy, multiple satellite masses in the liver and enhancing lesion of the left sacrum consistent with metastatic disease. Reviewed, dictated and finalized at location L. IMPRESSION: 1. Liver mass with interval enlargement since the comparison MRI. Differential includes hepatocellular carcinoma, cholangiocarcinoma, or biphenotypic tumor. 2. Multiple lung nodules, upper abdominal lymphadenopathy, multiple satellite m asses in the liver and enhancing lesion of the left sacrum consistent with meta static disease.
--- NOTE | ~2022-04-05 | CT_ITS ---
EXAMINATION: CT abdomen pelvis wo con DATE: 04/07/2022 16:25 INDICATION: Liver mass TECHNIQUE: Computed tomography (CT) of the abdomen and pelvis was performed without intravenous contr ast. The dose-length product (DLP) was 1278.53 mGy-cm. Automated exposure control and iterative recon struction technique were employed. COMPARISON: 04/05/2022, 03/17/2021 FINDINGS: The examination is limited by the absence of intravenous contrast. There are multiple pulmo nary nodules of the visualized lung bases, new since 03/17/2021. The largest seen measures 16 mm in the right lobe. There is an approximately 9 cm low-attenuation mass in the right hepatic lobe. Multiple smaller satellite lesions are seen in the right hepatic lobe. The spleen, pancreas, and adrenal gland s are normal. The gallbladder is surgically absent. There is nodularity of the liver surface. There i s a stable 6.1 fusiform infrarenal abdominal aortic aneurysm status post endoluminal stent graft repa ir. The kidneys are unremarkable. There is upper abdominal lymphadenopathy. There is no free intraper itoneal gas or evidence of bowel obstruction. Colonic diverticulosis is present without evidence of d iverticulitis. There is an umbilical hernia containing fat. There is severe lumbar spondylosis. IMPRESSION: 1. Stable liver mass within the limitations of noncontrast examination concerning for primary hepatic malignancy. Satellite nodules of the liver, nodules of the visualized lung bases, and upper abdomina l lymphadenopathy are consistent with metastatic disease. Reviewed, dictated and finalized at location L. IMPRESSION: 1. Stable liver mass within the limitations of noncontrast examination concerni ng for primary hepatic malignancy. Satellite nodules of the liver, nodules of t he visualized lung bases, and upper abdominal lymphadenopathy are consistent wi th metastatic disease.
--- NOTE | ~2022-04-05 | XR_ITS ---
XR chest 2V 04/05/2022 15:52 Indication: Shortness of breath. Uterine cancer. Procedure: 2 view chest Comparison: Comparison to multiple prior studies sequentially, with oldest reviewed study dated 02/20. Findings: Cardiomegaly. Mild pulmonary vascular congestion. There is a calcified granuloma right uppe r thorax. No significant effusion or pneumothorax. The lungs are hyperinflated which is consistent wi th, but not diagnostic of chronic obstructive pulmonary disease. No acute osseous abnormality. Impression: 1: Cardiomegaly with mild pulmonary vascular congestion. Reviewed, dictated and finalized at location A. Impression: 1: Cardiomegaly with mild pulmonary vascular congestion.
--- NOTE | ~2022-04-05 | CT_ITS ---
EXAMINATION: CT diagnostic chest w con DATE: 04/08/2022 08:12 INDICATION: lung mass TECHNIQUE: Computed tomography (CT) of the chest was performed with 100 mL Omnipaque-350 intravenous contrast. Automated exposure control and iterative reconstruction technique were employed. The dose-l ength product was 504.86 mGy-cm. COMPARISON: X-ray chest 04/05/2022. CT abdomen and pelvis 04/07/2022. FINDINGS: CHEST: Thoracic aorta: Moderate arch calcification. Lung parenchyma and airways: Innumerable diffuse pulmonary nodule, the largest measures 19 mm in the right lower lobe. More central pulmonary nodule versus infrahilar abnormal lymph node on the right. Thoracic inlet, axillae and chest wall: No thyroid or soft tissue mass. No axillary lymphadenopathy. Mediastinum: Subcentimeter anterior right pericardial lymph node. Mediastinum otherwise normal. Heart and pericardium: Normal heart size. No pericardial effusion. Coronary artery calcifications: Moderate. Pleura: No effusion or mass. Upper abdomen: Multiple grossly enlarged upper abdominal and necrotic lymph nodes. Indeterminate righ t adrenal mass. Heterogeneous multilobulated 10 cm region in the right lobe of the liver, suspicious for tumor. Thoracic bones: No acute osseous finding in the chest. IMPRESSION: Multiple pulmonary nodules and a possible enlarged right infrahilar lymph node, suspicious for metast atic disease. 10 cm right liver lobe lesion suspicious for primary or secondary malignancy. Suspiciou s right adrenal lesion. Upper abdominal lymphadenopathy. Reviewed, dictated and finalized at location K. IMPRESSION: Multiple pulmonary nodules and a possible enlarged right infrahilar lymph node, suspicious for metastatic disease. 10 cm right liver lobe lesion suspicious fo r primary or secondary malignancy. Suspicious right adrenal lesion. Upper abdom inal lymphadenopathy.
[2022-04-05 15:33] LABS: Glucose Point of Care 215 mg/dl (65-105)
[2022-04-05 15:34] VITALS: BP 147/61; PULSE 91; RESP 19; TEMP 37.2; O2SAT 94
--- NOTE | 2022-04-05 15:37 | ECG_ITS ---
Measurements Intervals [place] Rate: 92 P: -25 MS: 144 QRS: -16 QRSD: 88 T: 53 QT: 366 QTc: 455 Interpretive Statements SINUS RHYTHM NONSPECIFIC ST & T-WAVE ABNORMALITY- HIGH LATERAL LEADS BASELINE WANDER- I, III BORDERLINE ECG Electronically Signed On 04-05-2022 18:58:37 CDT by Bruce Flowers D.O.
[2022-04-05 15:45] LABS: Basophils Percent Auto 0.3 % (0.2-1.2); Eosinophils Absolute Auto 0.1 K/mm3 (0-0.3); Eosinophils Percent Auto 0.8 % (0-4.4); Hematocrit 28.8 % (37.0-47.0); Hemoglobin 8.4 g/dL (12.0-15.0); Immature Granulocyte Absolute 0.06 K/mm3 (0.00-0.031); Immature Granulocyte Percent A 0.6 % (0-0.5); Lymphocytes Absolute Auto 1.43 K/mm3 (0.9-3.2); Lymphocytes Percent Auto 13.4 % (18.3-44.2); Mean Corpuscular HGB Conc 29.2 g/dl (32-36); Mean Corpuscular Hemoglobin 25.8 pg (26-34); Mean Corpuscular Volume 88.6 fl (80-100); Mean Platelet Volume 9.8 fl (7.4-10.4); Monocytes Absolute Auto 0.7 K/mm3 (0.1-0.6); Monocytes Percent Auto 6.5 % (2.6-8.5); Neutrophils Absolute Auto 8.4 K/mm3 (1.3-6.7); Neutrophils Percent Auto 78.4 % (45.5-73.1); Platelet Count Result 315 k/mm3 (150-375); Red Blood Count 3.25 M/mm3 (4.2-5.4); Red Cell Distribution Width 16.3 % (11.5-14.5); White Blood Count 10.7 K/mm3 (4.5-10.0)
--- NOTE | 2022-04-05 15:46 | ED.SOB ---
HPI - SOB/Dyspnea General Chief Complaint: Shortness of Breath/Dyspnea Stated Complaint: sob, bs low, hx of sepsis, 3+ pitting edema legs Time Seen by Provider: 04/05/22 15:38 History of Present Illness HPI Narrative: Pt presents with shortness of breath with minimal exertion over the last several days and swelling of her legs. Pt also complains of generalized abdominal pain after eating a roast beef sandwich for lunch today. Pt denies cough or CP/ Pt denies diarrhea or vomiting. Related Data Home Medications Medication Instructions Recorded Confirmed aspirin 81 mg tablet,delayed 81 mg PO DAILY 05/10/20 01/26/22 release (Adult Aspirin Regimen) cholecalciferol (vitamin D3) 125 125 mcg PO DAILY 05/10/20 01/26/22 mcg (5,000 unit) capsule coenzyme Q10 200 mg capsule (Co 100 mg PO BID 05/10/20 01/26/22 Q-10) vitamin B complex (Complex B-100 1 tablet PO DAILY 05/10/20 01/26/22 tablet,extended release) vitamins A,C,H-aolg-afnros 2,148 1 tablet PO BID 03/11/21 01/26/22 mcg-113 mg-45 mg-17.4 mg tablet liraglutide 0.6 mg/0.1 mL (18 mg/3 0.6 mg subcut DAILY 01/17/22 01/26/22 mL) subcutaneous pen injector (Victoza 2-Major) Allergies Allergy/AdvReac Type Severity Reaction Status Date / Time No Known Allergies Allergy Mild Verified 04/05/22 15:36 Review of Systems Review of Systems: All systems reviewed & are unremarkable except as noted in HPI and below PMFSH Past Medical History Medical History COPD (chronic obstructive pulmonary disease) Diabetes mellitus Obstructive sleep apnea Uterine cancer Surgical History Surgical History History of cholecystectomy History of hernia repair History of hysterectomy Family History Family History Father Family history of cardiovascular disease Mother Carcinoma of colon, Onset Age: 65 Breast cancer Sibling Family history of pancreatic cancer, Onset Age: 43 Diabetes mellitus Social History Social History (Reviewed 04/05/22 @ 14:45 by Tabitha Norton [facility] Social History: the patient is and has 1 biological child in 3 step children. The patient is a full code. The daughter Ronit states that she is the power maintenance tech for healthcare. The patient desires to be a full code. The patient stated that she quit smoking in 1991. The patient retired from the [email or web address]. The patient denies any alcohol or illicit drugs. Smoking packs per day: 2 Smoking cigarettes per day: 40.0 Years smoked: 30 Smoking pack-years: 60.00 Smoking status: Former smoker Alcohol intake: never Alcohol use details: socially Substance use: never Spiritual care concerns: No Exam Const: General: healthy appearing Nutritional Appearance: well nourished Orientation/consciousness: patient oriented x3 Limitations: no limitations HENMT: Head: normal to inspection Mouth: Yes Normal oral and palatal mucosa present Resp: Effort & Inspection: normal respiratory effort Auscultation: crackles Cardio: Rate: regular rate Rhythm: regular rhythm GI: GI Palp: Yes Soft to palpation and Yes Tenderness to palpation present (GI) (mild diffuse tenderness) Auscultation: Hyperactive bowel sounds present Skin: General skin exam: normal color Rashes: no rashes Wounds: no wounds Neuro: General: patient oriented x3, moves all extremities, no meningeal signs and no focal motor deficits Cranial nerves: Yes Nystagmus not present Speech: normal speech Extrem: General: normal to inspection and edema (bilateral lower extremity edema) Psych: Mental Status: mental status grossly normal Affect: normal affect Attitude: cooperative Course Vital Signs Vital signs: Vital Signs Temperature 98.9 F 04/05/22 15:34 Pulse Rate 91 04/05/22 15:34 Respiratory Rate 19 04/05/22
[2022-04-05 15:53] LABS: Hypochromasia 1+ (NORMAL); Ovalocytes 1+ (NORMAL); Platelet Estimate Adequate (Adequate)
[2022-04-05 15:54] LABS: Alanine Aminotransferase 40 U/L (6-35); Albumin Level 3.7 g/dL (3.5-5.1); Alkaline Phosphatase 169 U/L (38-126); Anion Gap 9 mmol/L (8-16); Aspartate Amino Transferase 47 U/L (14-36); Bilirubin,Total 0.4 mg/dL (0.2-1.3); Blood Urea Nitrogen 19 mg/dL (7-17); Calcium 8.8 mg/dL (8.4-10.2); Carbon Dioxide 30 mmol/L (22-30); Chloride 100 mmol/L (98-107); Estimated CRCL calculation 45 ml/min; Estimated Glomerular Filt Rate 49; Glucose 207 mg/dL (65-110); Potassium 3.7 mmol/L (3.4-5.0); Sodium 139 mmol/L (137-145)
[2022-04-05 16:34] LABS: Troponin I < 0.012 ng/mL (0.000-0.034)
[2022-04-05 16:56] LABS: SARS-CoV-2 RNA PCR Negative
[2022-04-05] MEDS: FUROSEMIDE INJ 40 MG/4 ML VIAL IV PUSH (17:34)
[2022-04-05 18:07] VITALS: BMI 38.1
--- NOTE | 2022-04-05 18:15 | PM.IMHP ---
H&P: HPI History of Present Illness Date/Time: 04/05/22 18:15 Chief Complaint: Multiple complaints. Narrative: This is a very pleasant 76-year-old female with hypertension, hyperlipidemia, COPD, sleep apnea, diabetes, chronic kidney disease, and history of uterine cancer presented to the emergency department via private vehicle from home for evaluation of multiple complaints. She has lost 33 lb in the last several months though not necessarily intentionally. Her appetite has just not been very good and thus she has not been eating much; she also admits to occasional early satiety in addition to frequent bloating and gas. She frequently has nausea and this morning not long after eating she felt as though she was going to vomit however it sounds like she just had dry heaves. A couple of months ago she had an abdominal CT done for evaluation post abdominal aortic aneurysm repair and it sounds like at that time she was noted to have a mass in her liver for which she had an abdominal MRI showing a 6 x 9 x 5.1 cm liver mass with a differential diagnosis to include hepatocellular carcinoma, metastatic disease, or abscess findings of cirrhosis of the liver and portal venous hypertension. She was referred to Gastroenterology and was seen by one of their nurse practitioners on 01/26/2022 at which time multiple lab tests were ordered. She was also referred to [facility] for further evaluation though was told that she could not get an appointment until December of 2022! I am assuming that there were not concerns for abscess as she was not treated with antibiotics. In any event, she continues to have the aforementioned symptoms and more recently she has been experiencing nighttime chills. Over the last several days she has developed lower extremity edema and some shortness of breath with exertion and she decided to come in today for evaluation. She was afebrile on arrival her vital signs have been stable. Her white blood cell count was only mildly elevated but it is noted that her hemoglobin and hematocrit have progressively gone down over the past year. With further questioning she does tell me that she was recently started on iron however stop taking that as it made her GI symptoms worse. Creatinine today is stable on review of previous labs. Her AST, ALT, and alkaline phosphatase are only mildly elevated. Chest x-ray showed cardiomegaly with mild pulmonary vascular congestion on the morning she is being admitted for further evaluation. She denies fever, cold and flu symptoms, sick contacts, chest pain, pleuritic pain, palpitations, orthopnea, vomiting, diarrhea, melena, hematochezia, dysuria, syncope, and near syncope. She has not had any recent travel and she denies sick contacts. She does have quite a few parakeets at home with no obvious illness. Review of Systems Review of Systems: Twelve systems were reviewed. No headache or neck ache. No vertigo. No sick contacts. No sinus congestion or sore throat. No cough. She has been having frequent episodes of hypoglycemia into the 40s and 50s though her random glucose today was just over 200. No blurry vision, polydipsia, or polyuria. Except as documented, all other systems were reviewed and are negative. [facility] Past Medical History Medical History (Updated 04/05/22 @ 23:19 by Gina Ace PA-C) Arthritis Chronic kidney disease Chronic obstructive pulmonary disease Cirrhosis of liver Degenerative disc disease Hypertension Obstructive sleep apnea Type 2 diabetes mellitus Uterine cancer Surgical History Surgical History (Updated 04/05/22 @ 23:15 by Gina Ace PA-C) History of abdominal aortic aneurysm repair History of cataract extraction with lens replacement History of cholecystectomy History of colonoscopy with polypectomy History of hernia repair History of hysterectomy Family History Family History Father Family history of cardio
[2022-04-05 18:24] VITALS: BP 144/53; PULSE 108; RESP 19; TEMP 36.1; O2SAT 96
[2022-04-05 18:27] VITALS: BP 144/53; PULSE 108; TEMP 36.1; O2SAT 96
[2022-04-05 18:31] LABS: Appearance Urine Clear (Clear); Bilirubin Urine Negative (Negative); Blood Urine Negative (Negative); Color Urine Yellow (Yellow); Glucose Urine UA Negative (Negative); Ketones Urine Negative (Negative); Leukocyte Esterase Ur Negative LEU/UL (Negative); Nitrate Urine Negative (Negative); Protein Urine 1+ mg/dL (Negative); Specific Grav Ur 1.015 (1.001-1.035); Urobilinogen Urine 0.2 mg/dL (<2.0); pH Urine 5.5 (5.0-9.0)
[2022-04-05 18:32] LABS: Add Urine Microscopic? YES
[2022-04-05 18:39] LABS: Bacteria Urine Trace /hpf; Mucus Urine Rare /lpf; RBC Urine 0-2 /hpf (0-2); Squamous Epithelial Cell Urine Occasional /hpf (Few); WBC Urine 0-3 /hpf
[2022-04-05 20:00] VITALS: PULSE 95; O2SAT 97
[2022-04-05 20:11] LABS: Troponin I < 0.012 ng/mL (0.000-0.034)
[2022-04-05 22:00] VITALS: BP 146/58; PULSE 76; RESP 18; TEMP 37; O2SAT 97
[2022-04-05 23:09] LABS: Troponin I < 0.012 ng/mL (0.000-0.034)
[2022-04-05 23:35] VITALS: PULSE 91; RESP 18; O2SAT 97
[2022-04-05 23:56] LABS: CRP 6.8 mg/dL (<1.0); Lactate Dehydrogenase 1218 U/L (313-618)
[2022-04-06] VITALS (11 sets, daily range): BP systolic 119–133; BP diastolic 42–57; PULSE 81–96; RESP 18–20; TEMP 36.3–36.8; O2SAT 97–100
[2022-04-06 00:02] LABS: Immature Reticulocyte Fraction 25.5 % (3.0-15.9); Reticulocyte Hemoglobin Conten 25.6 pg (28.2-35.7); Reticulocyte Percent 2.29 % (0.7-4.3); Reticulocytes Absolute 0.07 B/L (32.2-175.7)
[2022-04-06 00:44] LABS: Erythrocyte Sedimentation Rate > 140 mm/hr (0-20)
[2022-04-06 00:51] LABS: INR 1.5; Prothrombin Time 17.2 Seconds (11.1-14.7)
[2022-04-06 00:52] LABS: Partial Thromboplastin Time 32.6 SECONDS (22.3-36.8)
[2022-04-06 01:09] LABS: Folic Acid 5.3 ng/mL (2.76->20); Vitamin B12 > 1000.0 pg/mL (239-931)
[2022-04-06 01:37] LABS: Iron 24 ug/dL (37-170)
[2022-04-06 01:46] LABS: Percent Iron Saturation 10 % (20-50)
[2022-04-06 01:57] LABS: Hemoglobin A1C 5.4 % (<5.7)
[2022-04-06 06:48] LABS: Glucose Point of Care 266 mg/dl (65-105)
[2022-04-06 07:25] LABS: Glucose Point of Care 153 mg/dl (65-105)
[2022-04-06] MEDS: CHOLECALCIFEROL 1,000 UNITS TABLET 5000 UNITS PO (08:48)
[2022-04-06] MEDS: ENOXAPARIN 40 MG/0.4 ML SYRINGE SUB-Q (08:48)
[2022-04-06] MEDS: ASPIRIN 81 MG ENTERIC TABLET PO (08:48)
[2022-04-06] MEDS: SERTRALINE HCL 50 MG TABLET 100 MG PO (08:49)
[2022-04-06] MEDS: lisinopriL 20 MG TABLET BY MOUTH (08:49)
[2022-04-06] MEDS: FUROSEMIDE INJ 40 MG/4 ML VIAL 20 MG IV PUSH (08:49)
[2022-04-06] MEDS: PERFLUTREN LIPID MICROSPHERES 1.5 ML VIAL DILUTED TO 10 ML TOTAL VOLUME IV PUSH (10:42)
--- NOTE | 2022-04-06 10:42 | IVDEFINITY ---
Prior to administration of IV Definity the patient was educated on the risks and benefits of the imaging enhancing agent including potential adverse side effects. The patient verbalized understanding. Allergies were verified. No exclusion criteria were identified and at least one of the following inclusion criteria were met: 1) physician request, 2) patient technically difficult to image (per the [place] [employer] guidelines of two or more segments not discernable within the apical view), or 3) questionable left ventricular function. ?
[2022-04-06 11:31] LABS: Glucose Point of Care 204 mg/dl (65-105)
[2022-04-06] MEDS: INSULIN ASPART (*BKC) 100 UNITS/ML SUB-Q (12:11)
--- NOTE | 2022-04-06 13:00 | P.PNIM_ITS ---
Progress Note: A&P Assessment and Plan (1) Congestive heart failure: Code(s): I50.9 - Heart failure, unspecified Status: Acute Assessment and Plan: * Presented with edema and shortness of breath * Chest xray shows cardiomegaly with mild pulmonary vascular congestion * Supplemental oxygen wean to maintain saturation >90% * Echo show EF of 60-65% with a grade 1 diastolic dysfunction * Seems to be an acute exacerbation of diastolic heart failure * Trend urine output * increase lasix to 40mg IV BID * Trend daily weights (2) Normocytic anemia: Code(s): D64.9 - Anemia, unspecified Status: Acute Assessment and Plan: * H&H 7.4/25.4 * Anemia labs iron 24, TIBC 235,% saturation 10, ferritin 1640, B12 greater than a 1000, B12 5.3 * start ferrous sulfate 325mg PO BID * Trend H/H * Iron deficient anemia noted * transfuse as indicate (3) Abdominal pain: Code(s): R10.9 - Unspecified abdominal pain Status: Acute Assessment and Plan: * Resolved * Tolerating food * An ongoing problem for this patient with imaging several months ago showing a liver mass which may be malignancy, metastatic disease, or abscess. Given ongoing symptoms we will obtain a CT of the abdomen and pelvis. It is not acceptable for her to wait nearly 9 months for an appointment with a specialist to have this evaluated thus the area may need to be biopsied here or perhaps we can get her transferred to a tertiary care facility as an inpatient. (4) Elevated LFTs: Code(s): R79.89 - Other specified abnormal findings of blood chemistry Status: Acute Assessment and Plan: * Mild LFT elevation. * CT showed liver mass (5) Cirrhosis of liver: Code(s): K74.60 - Unspecified cirrhosis of liver Status: Acute Assessment and Plan: * Noted on recent imaging. * follow-up with chairperson anesthesiology upon discharge (6) Chronic kidney disease: Code(s): N18.9 - Chronic kidney disease, unspecified Status: Acute Assessment and Plan: * BUN/Cr is 18/1.00 * Creatinine is stable on review of previous labs and will be monitored closely while diuresing * Avoid nephrotoxic medications * Trend labs * Renal adjust medications (7) Obstructive sleep apnea: Code(s): G47.33 - Obstructive sleep apnea (adult) (pediatric) Status: Chronic Assessment and Plan: CPAP will be provided for the patient to use while hospitalized. (8) Type 2 diabetes mellitus: Code(s): E11.9 - Type 2 diabetes mellitus without complications Status: Acute Assessment and Plan: * Glucose 172 * A1c 5.4 * ISS * Hypoglycemia protocol * Trend labs * adjust therapy as indicated * Hold glipizide and metformin (poor appetite, received contrast) and initiate sliding scale insulin. (9) Liver mass: Code(s): R16.0 - Hepatomegaly, not elsewhere classified Status: Acute Assessment and Plan: * As mentioned above, she was referred to a tertiary care facility but cannot get in until December 2022. This will need to either be biopsied or perhaps she can be transferred as an inpatient to a tertiary facility for further evaluation. Differential according to the radiologist includes malignancy, metastatic disease, or abscess. Repeat CT of the abdomen and pelvis is pending to evaluate for any change or other incidental finding which m
--- NOTE | 2022-04-06 13:00 | PM.IMPN ---
Progress Note: A&P Assessment and Plan (1) Congestive heart failure: Code(s): I50.9 - Heart failure, unspecified Status: Acute Assessment and Plan: Presented with edema and shortness of breath Chest xray shows cardiomegaly with mild pulmonary vascular congestion Supplemental oxygen wean to maintain saturation >90% Echo show EF of 60-65% with a grade 1 diastolic dysfunction Seems to be an acute exacerbation of diastolic heart failure Trend urine output increase lasix to 40mg IV BID Trend daily weights (2) Normocytic anemia: Code(s): D64.9 - Anemia, unspecified Status: Acute Assessment and Plan: H&H 7.4/25.4 Anemia labs iron 24, TIBC 235,% saturation 10, ferritin 1640, B12 greater than a 1000, B12 5.3 start ferrous sulfate 325mg PO BID Trend H/H Iron deficient anemia noted transfuse as indicate (3) Abdominal pain: Code(s): R10.9 - Unspecified abdominal pain Status: Acute Assessment and Plan: Resolved Tolerating food An ongoing problem for this patient with imaging several months ago showing a liver mass which may be malignancy, metastatic disease, or abscess. Given ongoing symptoms we will obtain a CT of the abdomen and pelvis. It is not acceptable for her to wait nearly 9 months for an appointment with a specialist to have this evaluated thus the area may need to be biopsied here or perhaps we can get her transferred to a tertiary care facility as an inpatient. (4) Elevated LFTs: Code(s): R79.89 - Other specified abnormal findings of blood chemistry Status: Acute Assessment and Plan: Mild LFT elevation. CT showed liver mass (5) Cirrhosis of liver: Code(s): K74.60 - Unspecified cirrhosis of liver Status: Acute Assessment and Plan: Noted on recent imaging. follow-up with manager income tax upon discharge (6) Chronic kidney disease: Code(s): N18.9 - Chronic kidney disease, unspecified Status: Acute Assessment and Plan: BUN/Cr is 18/1.00 Creatinine is stable on review of previous labs and will be monitored closely while diuresing Avoid nephrotoxic medications Trend labs Renal adjust medications (7) Obstructive sleep apnea: Code(s): G47.33 - Obstructive sleep apnea (adult) (pediatric) Status: Chronic Assessment and Plan: CPAP will be provided for the patient to use while hospitalized. (8) Type 2 diabetes mellitus: Code(s): E11.9 - Type 2 diabetes mellitus without complications Status: Acute Assessment and Plan: Glucose 172 A1c 5.4 ISS Hypoglycemia protocol Trend labs adjust therapy as indicated Hold glipizide and metformin (poor appetite, received contrast) and initiate sliding scale insulin. (9) Liver mass: Code(s): R16.0 - Hepatomegaly, not elsewhere classified Status: Acute Assessment and Plan: As mentioned above, she was referred to a tertiary care facility but cannot get in until December 2022. This will need to either be biopsied or perhaps she can be transferred as an inpatient to a tertiary facility for further evaluation. Differential according to the radiologist includes malignancy, metastatic disease, or abscess. Repeat CT of the abdomen and pelvis is pending to evaluate for any change or other incidental finding which may suggest abscess though we will hold on antibiotics at this time. She does have multiple parakeets at home but histoplasmosis and psittacosis seem less likely. GI consulted Possible biopsy Consider oncology (10) AAA (abdominal aortic aneurysm): Qualifiers: Presence of rupture: without rupture Qualified Code(s): I71.4 - Abdominal aortic aneurysm, without rupture Code(s): I71.4 - Abdominal aortic aneurysm, without rupture Status: Acute Assessment and Plan: Seem on the ct with small leak MRI f
[2022-04-06 13:31] LABS: Basophils Percent Auto 0.2 % (0.2-1.2); Eosinophils Absolute Auto 0.1 K/mm3 (0-0.3); Eosinophils Percent Auto 1.2 % (0-4.4); Hematocrit 25.4 % (37.0-47.0); Hemoglobin 7.4 g/dL (12.0-15.0); Immature Granulocyte Absolute 0.06 K/mm3 (0.00-0.031); Immature Granulocyte Percent A 0.6 % (0-0.5); Lymphocytes Absolute Auto 1.12 K/mm3 (0.9-3.2); Lymphocytes Percent Auto 11.8 % (18.3-44.2); Mean Corpuscular HGB Conc 29.1 g/dl (32-36); Mean Corpuscular Hemoglobin 25.7 pg (26-34); Mean Corpuscular Volume 88.2 fl (80-100); Mean Platelet Volume 10.3 fl (7.4-10.4); Monocytes Absolute Auto 0.7 K/mm3 (0.1-0.6); Monocytes Percent Auto 7.3 % (2.6-8.5); Neutrophils Absolute Auto 7.5 K/mm3 (1.3-6.7); Neutrophils Percent Auto 78.9 % (45.5-73.1); Platelet Count Result 287 k/mm3 (150-375); Red Blood Count 2.88 M/mm3 (4.2-5.4); Red Cell Distribution Width 16.2 % (11.5-14.5); White Blood Count 9.5 K/mm3 (4.5-10.0)
[2022-04-06 13:42] LABS: Alanine Aminotransferase 33 U/L (6-35); Albumin Level 3.3 g/dL (3.5-5.1); Alkaline Phosphatase 150 U/L (38-126); Anion Gap 10 mmol/L (8-16); Aspartate Amino Transferase 49 U/L (14-36); Bilirubin,Total 0.2 mg/dL (0.2-1.3); Blood Urea Nitrogen 18 mg/dL (7-17); Calcium 9.1 mg/dL (8.4-10.2); Carbon Dioxide 29 mmol/L (22-30); Chloride 97 mmol/L (98-107); Estimated CRCL calculation 51 ml/min; Estimated Glomerular Filt Rate 54; Glucose 172 mg/dL (65-110); Potassium 3.9 mmol/L (3.4-5.0); Sodium 136 mmol/L (137-145)
[2022-04-06 13:51] LABS: Anisocytosis 1+ (NORMAL); Hypochromasia 1+ (NORMAL); Platelet Estimate Adequate (Adequate); Poikilocytosis 1+ (NORMAL); Spherocytes 1+ (NORMAL)
[2022-04-06 16:14] LABS: NT Pro B Type Natriuretic Pept 614 pg/mL (5-100)
[2022-04-06 16:15] LABS: IFOB Positive Control Positive; Immunochemical Fecal Occult Bl Negative (N)
[2022-04-06 17:00] LABS: Glucose Point of Care 140 mg/dl (65-105)
[2022-04-06] MEDS: FUROSEMIDE INJ 40 MG/4 ML VIAL IV PUSH (17:56)
--- NOTE | 2022-04-06 18:03 | ECHO_ITS ---
Patient Info Name: Veronika Dougherty Age: 76 years : 1945 Gender: Female Ht: 64 in Wt: 214 lbs BSA: 2.14 m2 HR: 95 bpm BP: 146 / 58 mmHg Heart Rhythm: Sinus Rhythm Exam Date: 04/06/2022 10:28 AM Exam Location: [facility] Patient Status: Outpatient Admit Date: 04/05/2022 Staff Ordering Physician: Gina Ace PA-C Battery Tester And Repairer: Feng Coates, [place], [place] Attending Provider: Jaime Noguera MD Referring Physician: Db GARDNER; Exam Type: CA echo dop color flow w con Study Info Indications R06.02 - Shortness of breath R60.9 - Edema, unspecified Complete two-dimensional, color flow and Doppler transthoracic echocardiogram is performed with contrast to opacify the left ventricle and to improve the deliniation of the left ventricle endocardial borders. Strain analysis performed. Summary 1. Left ventricular chamber dimension is normal. 2. Left ventricular systolic function is normal, estimated at 60-65%. 3. There is mildly increased left ventricular wall thickness. 4. The left ventricular diastolic function is grade I diastolic dysfunction. 5. Global longitudinal strain is abnormal at -12 %. 6. Left atrial chamber dimension is moderately enlarged. 7. There is moderate aortic valve sclerosis. 8. There is mild aortic valve calcification. 9. There is mild mitral valve regurgitation. 10. There is mild tricuspid valve regurgitation. 11. Mild pulmonary hypertension, estimated pulmonary arterial systolic pressure is 37 mmHg. 12. There is mild pulmonic regurgitation. Left Ventricle Left ventricular chamber dimension is normal. Left ventricular systolic function is normal, estimated at 60-65%. There is mildly increased left ventricular wall thickness. The left ventricular diastolic function is grade I diastolic dysfunction. Global longitudinal strain is abnormal at -12 %. Right Ventricle Right ventricular chamber dimension is normal. Right ventricular systolic function is normal. Left Atria Left atrial chamber dimension is moderately enlarged. Right Atria Right atrial chamber dimension is normal. Atrial Septum Intact interatrial septum visualized by color flow imaging. Aortic Valve The aortic valve is trileaflet. There is moderate aortic valve sclerosis. There is no aortic valve stenosis. There is trace aortic valve regurgitation. There is mild aortic valve calcification. Pulmonic Valve The pulmonic valve is normal. There is no pulmonic valve stenosis. There is mild pulmonic regurgitation. Mitral Valve The mitral valve has calcified annulus. There is no mitral valve stenosis. There is mild mitral valve regurgitation. Tricuspid Valve The tricuspid valve leaflets are normal. There is no significant tricuspid valve stenosis. There is mild tricuspid valve regurgitation. Mild pulmonary hypertension, estimated pulmonary arterial systolic pressure is 37 mmHg. Pericardium/Pleural The pericardium appears normal. There is no pericardial effusion. Inferior Vena Cava Normal inferior vena cava with <50% collapse upon inspiration consistent with elevated right atrial pressure, 10 mmHg. Aorta The aortic root size at the sinus of Valsalva is normal. Left Ventricular Outflow Tract Name Value Normal LVOT 2D
[2022-04-06 21:04] LABS: Glucose Point of Care 228 mg/dl (65-105)
[2022-04-07] VITALS (16 sets, daily range): BP systolic 78–140; BP diastolic 41–93; PULSE 78–96; RESP 18–20; TEMP 36–37.3; O2SAT 94–100
[2022-04-07 06:22] LABS: Basophils Percent Auto 0.2 % (0.2-1.2); Eosinophils Absolute Auto 0.1 K/mm3 (0-0.3); Eosinophils Percent Auto 1.1 % (0-4.4); Hematocrit 23.3 % (37.0-47.0); Immature Granulocyte Absolute 0.06 K/mm3 (0.00-0.031); Immature Granulocyte Percent A 0.7 % (0-0.5); Lymphocytes Absolute Auto 1.29 K/mm3 (0.9-3.2); Lymphocytes Percent Auto 14.4 % (18.3-44.2); Mean Corpuscular HGB Conc 29.6 g/dl (32-36); Mean Corpuscular Hemoglobin 26.2 pg (26-34); Mean Corpuscular Volume 88.6 fl (80-100); Mean Platelet Volume 10.2 fl (7.4-10.4); Monocytes Absolute Auto 0.7 K/mm3 (0.1-0.6); Neutrophils Absolute Auto 6.8 K/mm3 (1.3-6.7); Neutrophils Percent Auto 75.6 % (45.5-73.1); Platelet Count Result 255 k/mm3 (150-375); Red Blood Count 2.63 M/mm3 (4.2-5.4); Red Cell Distribution Width 16.3 % (11.5-14.5)
[2022-04-07 06:49] LABS: Alanine Aminotransferase 29 U/L (6-35); Albumin Level 3.1 g/dL (3.5-5.1); Alkaline Phosphatase 140 U/L (38-126); Anion Gap 7 mmol/L (8-16); Aspartate Amino Transferase 45 U/L (14-36); Bilirubin,Total 0.5 mg/dL (0.2-1.3); Blood Urea Nitrogen 20 mg/dL (7-17); Calcium 8.8 mg/dL (8.4-10.2); Carbon Dioxide 31 mmol/L (22-30); Chloride 97 mmol/L (98-107); Estimated CRCL calculation 43 ml/min; Estimated Glomerular Filt Rate 44; Glucose 157 mg/dL (65-110); Magnesium 1.9 mg/dL (1.6-2.3); Potassium 3.5 mmol/L (3.4-5.0); Sodium 135 mmol/L (137-145)
[2022-04-07 07:48] LABS: Glucose Point of Care 154 mg/dl (65-105)
[2022-04-07 07:52] LABS: Hemoglobin 6.9 g/dL (12.0-15.0)
[2022-04-07 07:54] LABS: Platelet Estimate Adequate (Adequate)
[2022-04-07 07:55] LABS: Anisocytosis 1+ (NORMAL); Hypochromasia 1+ (NORMAL); Poikilocytosis 1+ (NORMAL)
[2022-04-07] MEDS: CHOLECALCIFEROL 1,000 UNITS TABLET 5000 UNITS PO (09:18)
[2022-04-07] MEDS: ENOXAPARIN 40 MG/0.4 ML SYRINGE SUB-Q (09:18)
[2022-04-07] MEDS: FUROSEMIDE INJ 40 MG/4 ML VIAL IV PUSH ×2 (09:18→21:58)
[2022-04-07] MEDS: FERROUS SULFATE 324 MG TABLET PO ×2 (09:18→17:20)
[2022-04-07] MEDS: SERTRALINE HCL 50 MG TABLET 100 MG PO (09:19)
[2022-04-07] MEDS: lisinopriL 20 MG TABLET BY MOUTH (09:19)
[2022-04-07] MEDS: ASPIRIN 81 MG ENTERIC TABLET PO (09:19)
--- NOTE | 2022-04-07 10:00 | PM.IMPN ---
Progress Note: A&P Assessment and Plan (1) Congestive heart failure: Code(s): I50.9 - Heart failure, unspecified Status: Acute Assessment and Plan: Presented with edema and shortness of breath Chest xray shows cardiomegaly with mild pulmonary vascular congestion Supplemental oxygen wean to maintain saturation >90% Echo show EF of 60-65% with a grade 1 diastolic dysfunction Seems to be an acute exacerbation of diastolic heart failure Trend urine output increase lasix to 40mg IV BID Trend daily weights, 1KG down Kahlil hose, compression therapy Add metoprolol closer to DC (2) Normocytic anemia: Code(s): D64.9 - Anemia, unspecified Status: Acute Assessment and Plan: H&H 6.9/23.3 Anemia labs iron 24, TIBC 235,% saturation 10, ferritin 1640, B12 greater than a 1000, B12 5.3 start ferrous sulfate 325mg PO BID Trend H/H Iron deficient anemia noted transfuse as indicate (3) Abdominal pain: Code(s): R10.9 - Unspecified abdominal pain Status: Acute Assessment and Plan: Resolved Tolerating food An ongoing problem for this patient with imaging several months ago showing a liver mass which may be malignancy, metastatic disease, or abscess. Given ongoing symptoms we will obtain a CT of the abdomen and pelvis. It is not acceptable for her to wait nearly 9 months for an appointment with a specialist to have this evaluated thus the area may need to be biopsied here or perhaps we can get her transferred to a tertiary care facility as an inpatient. (4) Elevated LFTs: Code(s): R79.89 - Other specified abnormal findings of blood chemistry Status: Acute Assessment and Plan: Mild LFT elevation. AST remains stable at 45 CT showed liver mass (5) Cirrhosis of liver: Code(s): K74.60 - Unspecified cirrhosis of liver Status: Acute Assessment and Plan: Noted on recent imaging. follow-up with engineering faculty member upon discharge No noted ascites (6) Chronic kidney disease: Code(s): N18.9 - Chronic kidney disease, unspecified Status: Acute Assessment and Plan: BUN/Cr is 20/1.20 Creatinine is stable on review of previous labs and will be monitored closely while diuresing Avoid nephrotoxic medications Trend labs Renal adjust medications (7) Obstructive sleep apnea: Code(s): G47.33 - Obstructive sleep apnea (adult) (pediatric) Status: Chronic Assessment and Plan: CPAP will be provided for the patient to use while hospitalized. (8) Type 2 diabetes mellitus: Code(s): E11.9 - Type 2 diabetes mellitus without complications Status: Acute Assessment and Plan: Glucose 157 A1c 5.4 ISS Hypoglycemia protocol Trend labs adjust therapy as indicated Hold glipizide and metformin (poor appetite, received contrast) and initiate sliding scale insulin. (9) Liver mass: Code(s): R16.0 - Hepatomegaly, not elsewhere classified Status: Acute Assessment and Plan: As mentioned above, she was referred to a tertiary care facility but cannot get in until December 2022. This will need to either be biopsied or perhaps she can be transferred as an inpatient to a tertiary facility for further evaluation. Differential according to the radiologist includes malignancy, metastatic disease, or abscess. Repeat CT of the abdomen and pelvis is pending to evaluate for any change or other incidental finding which may suggest abscess though we will hold on antibiotics at this time. She does have multiple parakeets at home but histoplasmosis and psittacosis seem less likely. GI consulted Possible biopsy Consider oncology Will initiate transfer with [facility] per family request (10) AAA (abdominal aortic aneurysm): Qualifiers: Presence of rupture: without rupture Qualified C
[2022-04-07 11:29] LABS: Glucose Point of Care 210 mg/dl (65-105)
[2022-04-07] MEDS: INSULIN ASPART (*BKC) 100 UNITS/ML SUB-Q (12:55)
--- NOTE | 2022-04-07 15:20 | WPDGICN ---
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: Code(s): K75.81 - Nonalcoholic steatohepatitis (DURAND); K74.60 - Unspecified cirrhosis of liver Status: Acute Assessment and Plan: most likely etiology of cirrhosis is durand because multiple risk factors, also denies etoh or ivda (work up only mild elevated shar) unfortunately she has not seen hepatology at [facility] after she was referred by our office because long waiting list now she is here with enlarged liver mass which is consistent with HCC (no need to do biopsy- actually risk of seeding with the needle if we do one anyway) (2) Hepatocellular carcinoma: Code(s): C22.0 - Liver cell carcinoma Status: Acute Assessment and Plan: get AFP level she will benefit to transfer to a tertiary hospital for evaluation and consideration start treatment (TACE, chemorx, etc) will consult hematology oncology (3) Acute on chronic anemia: Code(s): D64.9 - Anemia, unspecified Status: Acute Assessment and Plan: recent colonoscopy will need egd since she has new diagnosis of cirrhosis, assess for phg, varices, etc no overt gib (4) Abdominal pain: Code(s): R10.9 - Unspecified abdominal pain Status: Acute (5) Type 2 diabetes mellitus: Code(s): E11.9 - Type 2 diabetes mellitus without complications Status: Acute (6) Chronic obstructive pulmonary disease: Code(s): J44.9 - Chronic obstructive pulmonary disease, unspecified Status: Acute (7) Morbid obesity with BMI of 40.0-44.9, adult: Code(s): E66.01 - Morbid (severe) obesity due to excess calories; Z68.41 - Body mass index [BMI] 40.0-44.9, adult Status: Acute GI Consult Note Consult date/time: 04/07/22 15:20 Reason for consult: cirrhosis, HCC HPI: Veronika Dougherty is a 76 year old female with history of hypertension, hyperlipidemia, obesity, COPD, sleep apnea, diabetes, chronic kidney disease, and history of uterine cancer removed about 2 years ago who came to the emergency department with progressive fatigue, also lost 33 lb in the last several months. She was seen in the clinic few months ago after was found to have a suspicious lesion in the liver for evaluation post abdominal aortic aneurysm repair, had abdominal MRI showing a 6 x 9 x 5.1 cm liver mass with a differential diagnosis to include hepatocellular carcinoma, metastatic disease, or abscess findings of cirrhosis of the liver and portal venous hypertension. Patient was referred to hematology but also hepatology at [facility] but we are just learning the she did not get an appointment until next year. Liver work up only mild elevated shar 1:80 and probably underlying condition of cirrhosis is DURAND (no biopsy). Last month also noted more leg edema and pale, denies overt gib. Had colonoscopy just few months ago. hb 6.9, platelets 240, inr 1.5, creat 1.2, ast 45, bili 0.5. She had CT Scan a/p that showed Cirrhosis with enlargement of a 8.4 x 6.7 cm mass in the right hepatic lobe concerning for primary hepatocellular carcinoma, additional smaller hepatic nodules, multiple new subcentimeter pulmonary nodules and enlarging periportal, portacaval and periaortic lymphadenopathy, all suspicious for metastatic disease. No significant interval change in a 6.1 cm fusiform infrarenal abdominal aortic aneurysm with small endoleak. Review of Systems Constitutional: Comments: weight loss Eyes: Eyes: Reports no additional eye complaints ENT: Reports Normal hearing present Cardiovascular: Cardiovascular: Reports leg edema Respiratory: Respiratory: Denies cough Gastrointestinal: Gastrointestinal: Reports nausea Musculoskeletal: Musculoskeletal: Denies myalgias Integumentary/Breasts: Skin/Breast: Denies dry skin Neurologic: Denies Abnormal speech present Psychiatric: Psychiatric: Denies anxiety [facility] Past Medical History Medical History (Updated 04/07/22 @ 15:28 by Keyon
[2022-04-07 16:52] LABS: Glucose Point of Care 200 mg/dl (65-105)
--- NOTE | 2022-04-07 18:33 | PDONCCN ---
HPI - Date of Consult Date/Time: 04/07/22 18:33 Requesting Physician: Jaime Noguera MD Primary Care Provider: Romaine Iqbal PA-C - Consult Narrative Reason for consult: Metastatic disease Narrative: Veronika Dougherty is a 76 year old female with history of uterine cancer status post complete hysterectomy and BSO about 2 years ago along with history of hypertension, hyperlipidemia, COPD, diabetes and chronic kidney disease came into the hospital with poor appetite 33 lb weight loss along with early satiety and bloating. She has some nausea in the morning. Patient had abdominal CT done on April 06 that showed cirrhosis with enlargement of 8.4 x 6.7 cm mass in the right hepatic lobe concerning for primary hepatocellular carcinoma as well as smaller hepatic nodule and new subcentimeter pulmonary nodules and enlarged periportal, pericaval aortic and portacaval lymphadenopathy. MRI of abdomen showed liver mass with interval enlargement no measures 9.7 x 7.5 cm along with multiple lung nodules, upper abdominal lymphadenopathy and multiple satellite masses in the liver concerning for metastatic disease. Alpha-fetoprotein came back normal at 1.5 checked on January 26, 2022. Other labs showed elevated AST and low iron saturation, low iron and elevated serum ferritin. Vitamin B12 was high more than 1000. Creatinine was low at 1.2. She was significantly anemic with hemoglobin of 6.9 and MCV of 88.6. Patient denies any bleeding including melena hematochezia. Review of Systems - Review of Systems All systems reviewed & are unremarkable except as noted in HPI and bel - Neurologic Reports hearing normal, Denies abnormal speech [facility] Medical History: Medical History (Last Updated 04/07/22 @ 15:28 by Keyon Dias MD) Acute on chronic anemia Arthritis Chronic kidney disease Chronic obstructive pulmonary disease Cirrhosis of liver Degenerative disc disease Hepatocellular carcinoma Hypertension Liver cirrhosis secondary to DURAND Obstructive sleep apnea Type 2 diabetes mellitus Uterine cancer Surgical History: Surgical History (Last Updated 04/05/22 @ 23:15 by Gina Ace PA-C) History of abdominal aortic aneurysm repair History of cataract extraction with lens replacement History of cholecystectomy History of colonoscopy with polypectomy History of hernia repair History of hysterectomy Family History: Family History (Last Reviewed 04/05/22 @ 23:15 by Gina Ace PA-C) Father Family history of cardiovascular disease Mother Carcinoma of colon, Onset Age: 65 Breast cancer Sibling Family history of pancreatic cancer, Onset Age: 43 Diabetes mellitus - Social History Social History: Social History (Last Updated 04/05/22 @ 23:16 by Gina Ace PA-C) Others: Spiritual care concerns: No Meds Home Medications Medication Instructions Recorded Confirmed Type aspirin 81 mg tablet,delayed 81 mg PO DAILY 05/10/20 04/06/22 History release (Adult Aspirin Regimen) cholecalciferol (vitamin D3) 125 125 mcg PO DAILY 05/10/20 04/06/22 History mcg (5,000 unit) capsule coenzyme Q10 200 mg capsule (Co 100 mg PO BID 05/10/20 04/06/22 History Q-10) liraglutide 0.6 mg/0.1 mL (18 mg/3 1.2 mg (0.2 mL) subcut DAILY #18 mL 09/19/21 04/06/22 Rx mL) subcutaneous pen injector (MeetMoi 2-Major) atorvastatin 10 mg tablet 10 mg PO DAILY #90 tabs 11/07/21 04/06/22 Rx metformin 500 mg tablet,extended 500 mg PO DAILY #90 tabs 11/07/21 04/06/22 Rx release 24 hr sertraline 100 mg tablet 100 mg PO DAILY #90 tabs 11/07/21 04/06/22 Rx lisinopril 20 mg tablet See Rx Instructions .Route 01/02/22 04/06/22 Rx .COMPLEX #90 tabs furosemide 40 mg tablet (Lasix) 40 mg PO QAM #90 tabs 02/07/22 04/06/22 Rx blood sugar diagnostic (OneTouch #100 strips 02/08/22 04/06/22 Rx Verio test strips) glipizide 10 mg tablet, extended 10 mg PO B
[2022-04-08] VITALS (8 sets, daily range): BP systolic 117; BP diastolic 46; PULSE 84–94; RESP 20; TEMP 36.8; O2SAT 96–99
[2022-04-08 00:17] LABS: Glucose Point of Care 223 mg/dl (65-105)
--- NOTE | 2022-04-08 00:34 | PCRCNOTE ---
pt refused CPAP, per pt she wearing 1 liter of oxygen for comfort.
--- NOTE | 2022-04-08 07:55 | P.PNIM_ITS ---
Progress Note: A&P Assessment and Plan (1) Congestive heart failure: Code(s): I50.9 - Heart failure, unspecified Status: Acute Assessment and Plan: * Presented with edema and shortness of breath * Chest xray shows cardiomegaly with mild pulmonary vascular congestion * Supplemental oxygen wean to maintain saturation >90% * Echo show EF of 60-65% with a grade 1 diastolic dysfunction * Seems to be an acute exacerbation of diastolic heart failure * Trend urine output * increase lasix to 40mg IV BID * Trend daily weights, 1KG down * Kahlil hose, compression therapy * Add metoprolol closer to DC (2) Normocytic anemia: Code(s): D64.9 - Anemia, unspecified Status: Acute Assessment and Plan: * H&H * Anemia labs iron 24, TIBC 235,% saturation 10, ferritin 1640, B12 greater than a 1000, B12 5.3 * start ferrous sulfate 325mg PO BID * Trend H/H * Iron deficient anemia noted * transfuse as indicate (3) Abdominal pain: Code(s): R10.9 - Unspecified abdominal pain Status: Acute Assessment and Plan: * Resolved * Tolerating food * An ongoing problem for this patient with imaging several months ago showing a liver mass which may be malignancy, metastatic disease, or abscess. Given ongoing symptoms we will obtain a CT of the abdomen and pelvis. It is not acceptable for her to wait nearly 9 months for an appointment with a specialist to have this evaluated thus the area may need to be biopsied here or perhaps we can get her transferred to a tertiary care facility as an inpatient. (4) Elevated LFTs: Code(s): R79.89 - Other specified abnormal findings of blood chemistry Status: Acute Assessment and Plan: * Mild LFT elevation. * AST remains stable at 45 * CT showed liver mass (5) Cirrhosis of liver: Code(s): K74.60 - Unspecified cirrhosis of liver Status: Acute Assessment and Plan: * Noted on recent imaging. * follow-up with quality engineer medical device upon discharge * No noted ascites (6) Chronic kidney disease: Code(s): N18.9 - Chronic kidney disease, unspecified Status: Acute Assessment and Plan: * BUN/Cr is 20/1.20 * Creatinine is stable on review of previous labs and will be monitored closely while diuresing * Avoid nephrotoxic medications * Trend labs * Renal adjust medications (7) Obstructive sleep apnea: Code(s): G47.33 - Obstructive sleep apnea (adult) (pediatric) Status: Chronic Assessment and Plan: * CPAP will be provided for the patient to use while hospitalized. (8) Type 2 diabetes mellitus: Code(s): E11.9 - Type 2 diabetes mellitus without complications Status: Acute Assessment and Plan: * Glucose 157 * A1c 5.4 * ISS * Hypoglycemia protocol * Trend labs * adjust therapy as indicated * Hold glipizide and metformin (poor appetite, received contrast) and initiate sliding scale insulin. (9) Liver mass: Code(s): R16.0 - Hepatomegaly, not elsewhere classified Status: Acute Assessment and Plan: * As mentioned above, she was referred to a tertiary care facility but cannot get in until December 2022. This will need to either be biopsied or perhaps she can be transferred as an inpatient to a tertiary facility for further
--- NOTE | 2022-04-08 07:55 | PM.IMPN ---
Progress Note: A&P Assessment and Plan (1) Congestive heart failure: Code(s): I50.9 - Heart failure, unspecified Status: Acute Assessment and Plan: Presented with edema and shortness of breath Chest xray shows cardiomegaly with mild pulmonary vascular congestion Supplemental oxygen wean to maintain saturation >90% Echo show EF of 60-65% with a grade 1 diastolic dysfunction Seems to be an acute exacerbation of diastolic heart failure Trend urine output increase lasix to 40mg IV BID Trend daily weights, 1KG down Kahlil hose, compression therapy Add metoprolol closer to DC (2) Normocytic anemia: Code(s): D64.9 - Anemia, unspecified Status: Acute Assessment and Plan: H&H Anemia labs iron 24, TIBC 235,% saturation 10, ferritin 1640, B12 greater than a 1000, B12 5.3 start ferrous sulfate 325mg PO BID Trend H/H Iron deficient anemia noted transfuse as indicate (3) Abdominal pain: Code(s): R10.9 - Unspecified abdominal pain Status: Acute Assessment and Plan: Resolved Tolerating food An ongoing problem for this patient with imaging several months ago showing a liver mass which may be malignancy, metastatic disease, or abscess. Given ongoing symptoms we will obtain a CT of the abdomen and pelvis. It is not acceptable for her to wait nearly 9 months for an appointment with a specialist to have this evaluated thus the area may need to be biopsied here or perhaps we can get her transferred to a tertiary care facility as an inpatient. (4) Elevated LFTs: Code(s): R79.89 - Other specified abnormal findings of blood chemistry Status: Acute Assessment and Plan: Mild LFT elevation. AST remains stable at 45 CT showed liver mass (5) Cirrhosis of liver: Code(s): K74.60 - Unspecified cirrhosis of liver Status: Acute Assessment and Plan: Noted on recent imaging. follow-up with grocery stock clerk upon discharge No noted ascites (6) Chronic kidney disease: Code(s): N18.9 - Chronic kidney disease, unspecified Status: Acute Assessment and Plan: BUN/Cr is 20/1.20 Creatinine is stable on review of previous labs and will be monitored closely while diuresing Avoid nephrotoxic medications Trend labs Renal adjust medications (7) Obstructive sleep apnea: Code(s): G47.33 - Obstructive sleep apnea (adult) (pediatric) Status: Chronic Assessment and Plan: CPAP will be provided for the patient to use while hospitalized. (8) Type 2 diabetes mellitus: Code(s): E11.9 - Type 2 diabetes mellitus without complications Status: Acute Assessment and Plan: Glucose 157 A1c 5.4 ISS Hypoglycemia protocol Trend labs adjust therapy as indicated Hold glipizide and metformin (poor appetite, received contrast) and initiate sliding scale insulin. (9) Liver mass: Code(s): R16.0 - Hepatomegaly, not elsewhere classified Status: Acute Assessment and Plan: As mentioned above, she was referred to a tertiary care facility but cannot get in until December 2022. This will need to either be biopsied or perhaps she can be transferred as an inpatient to a tertiary facility for further evaluation. Differential according to the radiologist includes malignancy, metastatic disease, or abscess. Repeat CT of the abdomen and pelvis is pending to evaluate for any change or other incidental finding which may suggest abscess though we will hold on antibiotics at this time. She does have multiple parakeets at home but histoplasmosis and psittacosis seem less likely. GI consulted Oncology consulted Biopsy ordered MRI of the liver ordered [facility] accepted by liver transplant, Dr. Childers (10) AAA (abdominal aortic aneurysm): Qualifiers: Presence of rupture: without rupture
[2022-04-08 08:01] LABS: Basophils Percent Auto 0.2 % (0.2-1.2); Eosinophils Absolute Auto 0.1 K/mm3 (0-0.3); Eosinophils Percent Auto 1.3 % (0-4.4); Hematocrit 27.8 % (37.0-47.0); Hemoglobin 8.5 g/dL (12.0-15.0); Immature Granulocyte Absolute 0.07 K/mm3 (0.00-0.031); Immature Granulocyte Percent A 0.8 % (0-0.5); Lymphocytes Absolute Auto 1.18 K/mm3 (0.9-3.2); Lymphocytes Percent Auto 12.9 % (18.3-44.2); Mean Corpuscular HGB Conc 30.6 g/dl (32-36); Mean Corpuscular Hemoglobin 26.6 pg (26-34); Mean Corpuscular Volume 87.1 fl (80-100); Mean Platelet Volume 10.7 fl (7.4-10.4); Monocytes Absolute Auto 0.7 K/mm3 (0.1-0.6); Monocytes Percent Auto 7.1 % (2.6-8.5); Neutrophils Absolute Auto 7.1 K/mm3 (1.3-6.7); Neutrophils Percent Auto 77.7 % (45.5-73.1); Platelet Count Result 295 k/mm3 (150-375); Red Blood Count 3.19 M/mm3 (4.2-5.4); Red Cell Distribution Width 15.8 % (11.5-14.5); White Blood Count 9.1 K/mm3 (4.5-10.0)
[2022-04-08 08:09] LABS: Alanine Aminotransferase 32 U/L (6-35); Albumin Level 3.3 g/dL (3.5-5.1); Alkaline Phosphatase 153 U/L (38-126); Anion Gap 6 mmol/L (8-16); Aspartate Amino Transferase 43 U/L (14-36); Bilirubin,Total 0.7 mg/dL (0.2-1.3); Blood Urea Nitrogen 22 mg/dL (7-17); Calcium 8.9 mg/dL (8.4-10.2); Carbon Dioxide 31 mmol/L (22-30); Chloride 97 mmol/L (98-107); Estimated CRCL calculation 47 ml/min; Estimated Glomerular Filt Rate 49; Glucose 186 mg/dL (65-110); Potassium 3.7 mmol/L (3.4-5.0); Sodium 134 mmol/L (137-145)
[2022-04-08 08:16] LABS: Glucose Point of Care 171 mg/dl (65-105)
[2022-04-08] MEDS: SERTRALINE HCL 50 MG TABLET 100 MG PO (09:27)
[2022-04-08] MEDS: FERROUS SULFATE 324 MG TABLET PO (09:27)
[2022-04-08] MEDS: CHOLECALCIFEROL 1,000 UNITS TABLET 5000 UNITS PO (09:27)
[2022-04-08] MEDS: lisinopriL 20 MG TABLET BY MOUTH (09:28)
--- NOTE | 2022-04-08 09:30 | P.TS_ITS ---
Transfer Discharge Sum: Prov Provider Date of admission: 04/06/22 16:14 Primary care physician: Romaine Iqbal PA-C Admitting clinician: Jaime Noguera MD Consults: 04/06/22 Consult to Physician Routine Comment: Spoke teo/ 15:36 04/06 (, ) Consulting Provider: Keyon Dias director call center sales/MD group to consult: GI for Liver mass Reason for consultation: Liver mass Has provider been notified: Yes 04/07/22 Consult to Physician Routine Comment: Spoke issa [id number] 04/07 (, [place]) Consulting Provider: Kong Tello director call center sales/MD group to consult: oncology Reason for consultation: new diagnosis of hepatocellular carcinoma Has provider been notified: Yes DS: Admitting Diagnosis Discharge Date 04/08/22 0930 Admitting Diagnosis CHF, Acute anemia, liver mass DS: Discharge Diagnosis Discharge Diagnosis (1) Congestive heart failure: Code(s): I50.9 - Heart failure, unspecified Status: Acute Assessment and Plan: * Presented with edema and shortness of breath * Chest xray shows cardiomegaly with mild pulmonary vascular congestion * Supplemental oxygen wean to maintain saturation >90% * Echo show EF of 60-65% with a grade 1 diastolic dysfunction * Seems to be an acute exacerbation of diastolic heart failure * Trend urine output * increase lasix to 40mg IV BID * Trend daily weights, 1KG down * Kahlil hose, compression therapy * Add metoprolol closer to DC (2) Normocytic anemia: Code(s): D64.9 - Anemia, unspecified Status: Acute Assessment and Plan: * H&H 8.5/27.8 * Anemia labs iron 24, TIBC 235,% saturation 10, ferritin 1640, B12 greater than a 1000, B12 5.3 * start ferrous sulfate 325mg PO BID * Trend H/H * Iron deficient anemia noted * transfuse as indicate (3) Abdominal pain: Code(s): R10.9 - Unspecified abdominal pain Status: Acute Assessment and Plan: * Resolved * Tolerating food * An ongoing problem for this patient with imaging several months ago showing a liver mass which may be malignancy, metastatic disease, or abscess. Given ongoing symptoms we will obtain a CT of the abdomen and pelvis. It is not acceptable for her to wait nearly 9 months for an appointment with a specialist to have this evaluated thus the area may need to be biopsied here or perhaps we can get her transferred to a tertiary care facility as an inpatient. (4) Elevated LFTs: Code(s): R79.89 - Other specified abnormal findings of blood chemistry Status: Acute Assessment and Plan: * Mild LFT elevation. * AST remains stable at 43 * CT showed liver mass (5) Cirrhosis of liver: Code(s): K74.60 - Unspecified cirrhosis of liver Status: Acute Assessment and Plan: * Noted on recent imaging. * follow-up with digital business analyst upon discharge * No noted ascites (6) Chronic kidney disease: Code(s): N18.9 - Chronic kidney disease, unspecified Status: Acute Assessment and Plan: * BUN/Cr is 22/1.10 * Creatinine is stable on review of previous labs and will be monitored closely while diuresing * Avoid nephrotoxic medications * Trend labs * Renal adjust medications (7) Obstructive sleep apnea: Code(s): G47.33 - Obs
--- NOTE | 2022-04-08 09:30 | PM.TDS ---
Transfer Discharge Sum: Prov Provider Date of admission: 04/06/22 16:14 Primary care physician: Romaine Iqbal PA-C Admitting clinician: Jaime Noguera MD Consults: 04/06/22 Consult to Physician Routine Comment: Spoke teo/ 15:36 04/06 (, ) Consulting Provider: Keyon Dias guide plant/MD group to consult: GI for Liver mass Reason for consultation: Liver mass Has provider been notified: Yes 04/07/22 Consult to Physician Routine Comment: Spoke teo/ 1545 04/07 (, [place]) Consulting Provider: Kong Tello guide plant/MD group to consult: oncology Reason for consultation: new diagnosis of hepatocellular carcinoma Has provider been notified: Yes DS: Admitting Diagnosis Discharge Date 04/08/22 0930 Admitting Diagnosis CHF, Acute anemia, liver mass DS: Discharge Diagnosis Discharge Diagnosis (1) Congestive heart failure: Code(s): I50.9 - Heart failure, unspecified Status: Acute Assessment and Plan: Presented with edema and shortness of breath Chest xray shows cardiomegaly with mild pulmonary vascular congestion Supplemental oxygen wean to maintain saturation >90% Echo show EF of 60-65% with a grade 1 diastolic dysfunction Seems to be an acute exacerbation of diastolic heart failure Trend urine output increase lasix to 40mg IV BID Trend daily weights, 1KG down Kahlil hose, compression therapy Add metoprolol closer to DC (2) Normocytic anemia: Code(s): D64.9 - Anemia, unspecified Status: Acute Assessment and Plan: H&H 8.5/27.8 Anemia labs iron 24, TIBC 235,% saturation 10, ferritin 1640, B12 greater than a 1000, B12 5.3 start ferrous sulfate 325mg PO BID Trend H/H Iron deficient anemia noted transfuse as indicate (3) Abdominal pain: Code(s): R10.9 - Unspecified abdominal pain Status: Acute Assessment and Plan: Resolved Tolerating food An ongoing problem for this patient with imaging several months ago showing a liver mass which may be malignancy, metastatic disease, or abscess. Given ongoing symptoms we will obtain a CT of the abdomen and pelvis. It is not acceptable for her to wait nearly 9 months for an appointment with a specialist to have this evaluated thus the area may need to be biopsied here or perhaps we can get her transferred to a tertiary care facility as an inpatient. (4) Elevated LFTs: Code(s): R79.89 - Other specified abnormal findings of blood chemistry Status: Acute Assessment and Plan: Mild LFT elevation. AST remains stable at 43 CT showed liver mass (5) Cirrhosis of liver: Code(s): K74.60 - Unspecified cirrhosis of liver Status: Acute Assessment and Plan: Noted on recent imaging. follow-up with pie maker upon discharge No noted ascites (6) Chronic kidney disease: Code(s): N18.9 - Chronic kidney disease, unspecified Status: Acute Assessment and Plan: BUN/Cr is 22/1.10 Creatinine is stable on review of previous labs and will be monitored closely while diuresing Avoid nephrotoxic medications Trend labs Renal adjust medications (7) Obstructive sleep apnea: Code(s): G47.33 - Obstructive sleep apnea (adult) (pediatric) Status: Chronic Assessment and Plan: CPAP will be provided for the patient to use while hospitalized. (8) Type 2 diabetes mellitus: Code(s): E11.9 - Type 2 diabetes mellitus without complications Status: Acute Assessment and Plan: Glucose 186 A1c 5.4 ISS Hypoglycemia protocol Trend labs adjust therapy as indicated Hold glipizide and metformin (poor appetite, received contrast) and initiate sliding scale insulin. (9) Liver mass: Code(s): R16.0 - Hepatomegaly, not elsewhere classified Status: Acute Assessment and Plan: As men
[2022-04-08 11:45] LABS: Glucose Point of Care 204 mg/dl (65-105)
--- NOTE | 2022-04-08 13:00 | WPDGIPROGNO ---
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 Differential includes hepatocellular carcinoma, cholangiocarcinoma, or biphenotypic tumor, Multiple lung nodules, upper abdominal lymphadenopathy, multiple satellite masses in the liver and enhancing lesion of the left sacrum consistent with metastatic disease hem-onco on board, recommending biopsy patient is going to [facility] (3) Elevated LFTs: Code(s): R79.89 - Other specified abnormal findings of blood chemistry Status: Acute (4) Type 2 diabetes mellitus: Code(s): E11.9 - Type 2 diabetes mellitus without complications Status: Acute (5) Weight loss: Code(s): R63.4 - Abnormal weight loss Status: Acute (6) Anemia: Code(s): D64.9 - Anemia, unspecified Status: Acute Assessment and Plan: at some point probably will need egd to assess if phg, varices, etc Subjective Date/time seen: 04/08/22 13:00 Interval history: no major changes, she is going to be transferred to [facility] Review of Systems Review of Systems: All systems reviewed & are unremarkable except as noted in HPI and below Exam Const: General: cooperative, healthy appearing, no acute distress, well developed, alert and awake Nutritional Appearance: well nourished Orientation/consciousness: patient oriented x3 Limitations: no limitations HENMT: Head: normal to inspection Ears: hearing grossly normal bilaterally General nose exam: Normal external nose present Mouth: Yes Normal oral and palatal mucosa present and Yes tongue normal Eyes: General: appearance normal, both eyes and all related structures Neck: Neck: normal visual inspection, full ROM, trachea midline and supple Chest: Chest palpation & inspection: normal inspection of the chest Resp: Effort & Inspection: normal respiratory effort and able to speak in complete sentences Cardio: Jugular venous distension: no JVD Rate: regular rate Rhythm: regular rhythm GI: Inspection: normal to inspection GI Palp: Yes Soft to palpation and No Tenderness to palpation present (GI) Auscultation: normal bowel sounds Skin: General skin exam: normal color and no rashes or lesions noted Lesions: no lesions Neuro: General: patient oriented x3, moves all extremities and Normal light touch and pain sensation Speech: normal speech Extrem: General: normal to inspection, full ROM and capillary refill normal Other: leg edema Psych: Appearance: grossly normal Objective Data Vital Signs Vital Signs: Vital Signs - 24 hr 04/07/22 13:17 04/07/22 13:18 04/07/22 17:13 Temperature 97.9 F 97.9 F 99.1 F Pulse Rate 85 95 91 Respiratory Rate 20 20 19 Blood Pressure 103/44 L 78/58 L 118/93 H Pulse Oximetry 100 100 100 Oxygen Delivery Oxygen Flow Rate 04/07/22 17:29 04/07/22 18:29 04/07/22 19:29 Temperature 98.5 F 98.8 F 98.4 F Pulse Rate 89 88 81 Respiratory Rate 18 19 19 Blood Pressure 115/42 L 108/78 120/45 L Pulse Oximetry 100 100 100 Oxygen Delivery Oxygen Flow Rate 04/07/22 20:29 04/07/22 22:00 04/08/22 00:28 Temperature 98.6 F 98.4 F Pulse Rate 85 83 84 Respiratory Rate 18 20 Blood Pressure 135/56 L 132/47 L Pulse Oximetry 100 100 96 Oxygen Delivery Nasal Cannula Oxygen Flow Rate 04/08/22 00:00 04/07/22 20:00 04/08/22 04:00 Temperature Pulse Rate 84 94 Respiratory Rate Blood Pressure Pulse Oximetry 96 Oxygen Delivery Nasal Cannula Oxygen Flow Rate
[2022-04-12 14:48] LABS: Haptoglobin 359 mg/dL (43-212)
[2022-04-13 16:18] LABS: Alpha Fetoprotein Tumor Marker 1.6 ng/mL (<6.1)
== END 2022-04-08 13:20 | disposition short-term general hospital (02) | DRG 291 ==
LOC: ANHED 16:19 → ANH3MEDSUR 17:08
PROVIDERS: Emergency Medicine; Internal Medicine Gastroenterology; Internal Medicine Hematology & Oncology; Physician Assistant; Admitting Provider Chiropractor; Emergency Provider Emergency Medicine; PCP Physician Assistant; Visit Provider Nurse Practitioner
DX: I13.0 Hypertensive heart and chronic kidney disease with heart failure and stage 1 through stage 4 chronic kidney disease, or unspecified chronic kidney disease (principal); I50.33 Acute on chronic diastolic (congestive) heart failure; Z20.822 Contact with and (suspected) exposure to COVID-19; R16.0 Hepatomegaly, not elsewhere classified; R91.8 Other nonspecific abnormal finding of lung field; R10.9 Unspecified abdominal pain; K74.60 Unspecified cirrhosis of liver; K75.81 Nonalcoholic steatohepatitis (NASH); R79.89 Other specified abnormal findings of blood chemistry; N18.9 Chronic kidney disease, unspecified; G47.33 Obstructive sleep apnea (adult) (pediatric); E11.22 Type 2 diabetes mellitus with diabetic chronic kidney disease; D50.9 Iron deficiency anemia, unspecified; J44.9 Chronic obstructive pulmonary disease, unspecified; I71.4 Abdominal aortic aneurysm, without rupture; E78.5 Hyperlipidemia, unspecified; R63.4 Abnormal weight loss; E66.01 Morbid (severe) obesity due to excess calories; Z68.38 Body mass index [BMI] 38.0-38.9, adult; Z79.82 Long term (current) use of aspirin; Z79.84 Long term (current) use of oral hypoglycemic drugs; Z85.42 Personal history of malignant neoplasm of other parts of uterus; Z87.891 Personal history of nicotine dependence; Z98.49 Cataract extraction status, unspecified eye; Z96.1 Presence of intraocular lens
CPT/HCPCS: 36415; 36430; 71046; 71260; 74176; 74177; 74183; 80053; 81001; 82105; 82274; 82607; 82728; 82746; 82948; 83010; 83036; 83540; 83550; 83615; 83735; 83880; 84443; 84484; 85025; 85046; 85610; 85652; 85730; 86140; 86850; 86880; 86900; 86901; 86920; 93005; 93970; 96372; 96374; 96375; 96376; 99285; A9270; A9577; C8929; C9803; G0378; J1650; J1815; J1940; P9016; Q9957; Q9967; U0003; U0005

== ENCOUNTER 2022-04-16 21:46 | Emergency (ER) | payer MEDICARE, BC, SELFPAY ==
--- NOTE | ~2022-04-16 | CT_ITS ---
EXAMINATION: CT brain wo con DATE: 04/16/2022 23:39 INDICATION: Head injury. TECHNIQUE: Computed tomography (CT) of the head was performed without intravenous contrast. The mA wa s adjusted according to patient size. Iterative reconstruction technique was employed. The dose-lengt h product was 605.33 mGy-cm. COMPARISON: None FINDINGS: There is a small old infarct in right cerebellum. There is a small old infarct in right bas al ganglia. There are scattered areas of low attenuation in the cerebral white matter. There is no in tracranial hemorrhage, acute infarction, or abnormal intracranial mass lesion. The ventricles are nor mal in size. There are likely changes of ocular lens replacement surgeries. The paranasal sinuses are clear. The mastoid air cells are normal. There is right posterior scalp soft tissue swelling. IMPRESSION: 1. 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 2. Mild nonspecific cerebral white matter disease, which likely represents chronic small vessel ische alem disease. Reviewed, dictated and finalized at location A. IMPRESSION: 1. 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 2. Mild nonspecific cerebral white matter disease, which likely represents shirt finisher reyna small vessel ischemic disease.
--- NOTE | ~2022-04-16 | CT_ITS ---
EXAMINATION: CT cervical spine wo con DATE: 04/16/2022 23:39 INDICATION: Head injury. TECHNIQUE: Computed tomography (CT) of the cervical spine was performed without intravenous contrast. Automated exposure control and iterative reconstruction technique were employed. The dose-length pro duct was 460.70 mGy-cm. COMPARISON: None FINDINGS: There are nodules in the thyroid measuring up to 12 mm, likely not clinically significant. There is 3 degrees levocurvature of cervical spine. Vertebral body heights are normal. There is moder ately decreased disc height at C3-C4 and severely decreased disc height at C6-C7. The following disc levels are specifically discussed: C2-C3: There is no uncovertebral joint osteoarthritis. There is moderate right and mild left facet you int osteoarthritis. There is no neural foraminal stenosis. There is no central canal stenosis. C3-C4: There is moderate right and mild left uncovertebral joint osteoarthritis. There is severe righ t and mild left facet joint osteoarthritis. There is mild right neural foraminal stenosis. There is m ild central canal stenosis. C4-C5: There is mild bilateral uncovertebral joint osteoarthritis. There is mild bilateral facet join t osteoarthritis. There is no neural foraminal stenosis. There is mild central canal stenosis. C5-C6: There is mild bilateral uncovertebral joint osteoarthritis. There is mild bilateral facet join t osteoarthritis. There is no neural foraminal stenosis. There is mild central canal stenosis. C6-C7: There is moderate and severe left uncovertebral joint osteoarthritis. There is moderate right and severe left facet joint osteoarthritis. There is mild bilateral neural foraminal stenosis. There is mild central canal stenosis. C7-T1: There is no uncovertebral joint osteoarthritis. There is moderate right and severe left facet joint osteoarthritis. There is mild bilateral neural foraminal stenosis. There is no central canal st enosis. IMPRESSION: 1. No fracture. 2. Severe cervical spondylosis. Reviewed, dictated and finalized at location A.
[2022-04-16 22:04] VITALS: BP 120/36; PULSE 101; RESP 18; TEMP 37.1; O2SAT 96
[2022-04-17 00:01] VITALS: BP 122/51; PULSE 96; RESP 16; O2SAT 93
--- NOTE | 2022-04-17 00:16 | ED.FALL ---
HPI - Fall General Chief Complaint: Fall Stated Complaint: fall, head trauma Time Seen by Provider: 04/16/22 23:34 History of Present Illness HPI Narrative: 76-year-old female presenting to the emergency department for evaluation of a head injury after having a ground-level fall. Patient states she was getting out of her shower and slipped causing her to fall backward and struck her head. Patient denies any other pain or injury. Related Data Home Medications Medication Instructions Recorded Confirmed aspirin 81 mg tablet,delayed 81 mg PO DAILY 05/10/20 04/06/22 release (Adult Aspirin Regimen) cholecalciferol (vitamin D3) 125 125 mcg PO DAILY 05/10/20 04/06/22 mcg (5,000 unit) capsule coenzyme Q10 200 mg capsule (Co 100 mg PO BID 05/10/20 04/06/22 Q-10) Allergies Allergy/AdvReac Type Severity Reaction Status Date / Time No Known Allergies Allergy Mild Verified 04/17/22 00:02 Review of Systems Review of Systems: CONSTITUTIONAL: Denies fever, chills, or sweats. EYES: Denies visual changes, redness, or discharge. ENT: Denies rhinorrhea, congestion, sore throat, or otalgia. CARDIOVASCULAR: Denies chest pain, palpitations, or edema. RESPIRATORY: Denies cough or dyspnea. GASTROINTESTINAL: Denies abdominal pain, nausea, vomiting, or diarrhea. GENITOURINARY: Denies dysuria or hematuria. SKIN: Hematoma to posterior scalp MUSCULOSKELETAL: Denies back pain, joint pain, or myalgia. NEUROLOGIC: Denies headache, numbness, or weakness. [facility] Past Medical History Medical History (Updated 04/17/22 @ 00:19 by Eric Schrader MD) Acute on chronic anemia Arthritis Chronic kidney disease Chronic obstructive pulmonary disease Cirrhosis of liver Degenerative disc disease Hepatocellular carcinoma Hypertension Liver cirrhosis secondary to DURAND Metastatic cancer to lung Obstructive sleep apnea Type 2 diabetes mellitus Uterine cancer Weight loss Surgical History Surgical History (Updated 04/07/22 @ 18:39 by Kong Tello MD) History of abdominal aortic aneurysm repair History of cataract extraction with lens replacement History of cholecystectomy History of colonoscopy with polypectomy History of hernia repair History of hysterectomy Family History Family History Father Family history of cardiovascular disease Mother Carcinoma of colon, Onset Age: 65 Breast cancer Sibling Family history of pancreatic cancer, Onset Age: 43 Diabetes mellitus Social History Social History (Updated 04/05/22 @ 23:16 by Gina Ace PA-C) Social History: The patient is and has 1 biological child in 3 step children. Retired from working for the [employer] She smoked 2 packs of cigarettes a day for 30 years and quit in 1991. No alcohol or illicit substance abuse. She designates her daughter, Ronit Catalan, as her surrogate decision maker and she wishes to be a full code. Spiritual care concerns: No Exam Narrative: APPEARANCE: Well appearing, no pain, no distress, well-nourished. HEAD: normocephalic, posterior scalp hematoma EYES: PERRLA/EOMI, conjunctivae clear. NOSE: Normal no drainage EARS:TMS clear with good light reflex. THROAT: Pharynx clear, no exudate. NECK: Supple. No adenopathy, no masses. RESPIRATORY: Airway patent, respirations nonlabored. Clear to auscultation bilaterally, no rales, rhonchi, wheezing. CARDIOVASCULAR: Regular rate and rhythm without murmurs rubs or gallops. ABDOMINAL: Soft, nontender, nondistended, normal bowel sounds MUSCULOSKELETAL: Moves all extremities. Strength/ROM intact, No edema, No calf tenderness. NEURO: Alert. Cranial nerves II through XII intact. Grossly intact SKIN: Warm, dry. Normal Color Course Course Emergency Course: Patient was able to ambulate at her baseline. Patient denies any other pain or injury. Patient's head and neck CT were negative for acute fi
== END 2022-04-17 00:42 | disposition home or self-care (01) ==
PROVIDERS: Emergency Provider Emergency Medicine; PCP Physician Assistant
DX: S09.90XA Unspecified injury of head, initial encounter (principal); E11.22 Type 2 diabetes mellitus with diabetic chronic kidney disease; I12.9 Hypertensive chronic kidney disease with stage 1 through stage 4 chronic kidney disease, or unspecified chronic kidney disease; N18.9 Chronic kidney disease, unspecified; D64.9 Anemia, unspecified; J44.9 Chronic obstructive pulmonary disease, unspecified; K74.60 Unspecified cirrhosis of liver; K75.81 Nonalcoholic steatohepatitis (NASH); G47.33 Obstructive sleep apnea (adult) (pediatric); Z85.05 Personal history of malignant neoplasm of liver; Z85.42 Personal history of malignant neoplasm of other parts of uterus; Z98.49 Cataract extraction status, unspecified eye; Z96.1 Presence of intraocular lens; Z90.710 Acquired absence of both cervix and uterus; Z87.891 Personal history of nicotine dependence; Z79.82 Long term (current) use of aspirin; Z79.84 Long term (current) use of oral hypoglycemic drugs; Z79.899 Other long term (current) drug therapy; R90.82 White matter disease, unspecified; M47.812 Spondylosis without myelopathy or radiculopathy, cervical region; W18.2XXA Fall in (into) shower or empty bathtub, initial encounter
CPT/HCPCS: 70450; 72125; 99284

== ENCOUNTER 2022-04-25 15:03 | Outpatient (CLI) | payer MEDICARE, BC, SELFPAY ==
[2022-04-25 15:21] LABS: Basophils Percent Auto 0.3 % (0.2-1.2); Eosinophils Absolute Auto 0.1 K/mm3 (0-0.3); Eosinophils Percent Auto 1.3 % (0-4.4); Hematocrit 27.7 % (37.0-47.0); Hemoglobin 8.1 g/dL (12.0-15.0); Immature Granulocyte Absolute 0.07 K/mm3 (0.00-0.031); Immature Granulocyte Percent A 0.6 % (0-0.5); Lymphocytes Absolute Auto 1.11 K/mm3 (0.9-3.2); Lymphocytes Percent Auto 10.2 % (18.3-44.2); Mean Corpuscular HGB Conc 29.2 g/dl (32-36); Mean Corpuscular Hemoglobin 26.1 pg (26-34); Mean Corpuscular Volume 89.4 fl (80-100); Mean Platelet Volume 10.1 fl (7.4-10.4); Monocytes Absolute Auto 0.6 K/mm3 (0.1-0.6); Monocytes Percent Auto 5.2 % (2.6-8.5); Neutrophils Absolute Auto 8.9 K/mm3 (1.3-6.7); Neutrophils Percent Auto 82.4 % (45.5-73.1); Platelet Count Result 323 k/mm3 (150-375); Red Cell Distribution Width 16.2 % (11.5-14.5); White Blood Count 10.8 K/mm3 (4.5-10.0)
[2022-04-25 15:41] LABS: Hypochromasia 1+ (NORMAL); Ovalocytes 1+ (NORMAL); Platelet Estimate Adequate (Adequate)
== END 2022-04-25 15:04 | disposition home or self-care (01) ==
PROVIDERS: PCP Physician Assistant; Visit Provider Physician Assistant
DX: D64.9 Anemia, unspecified (principal)
CPT/HCPCS: 36415; 85025

== ENCOUNTER 2022-04-25 16:02 | Emergency (ER) | payer MEDICARE, BC, SELFPAY ==
[2022-04-25] VITALS (9 sets, daily range): BP systolic 117–136; BP diastolic 49–93; PULSE 86–99; RESP 13–24; TEMP 36.3; O2SAT 80–100
--- NOTE | ~2022-04-25 | XR_ITS ---
EXAMINATION: XR chest 1V portable DATE: 04/25/2022 19:01 INDICATION: Weakness. TECHNIQUE: A single frontal view of the chest was obtained. COMPARISON: Chest 2 views 04/05/2022, chest CT 04/08/2022 FINDINGS: A calcified right lung nodule is consistent with old granulomatous disease. There are scatt ered nodules in the lungs bilaterally. No pleural effusion or pneumothorax. The heart size is normal. IMPRESSION: 1. Scattered pulmonary nodules, consistent with metastatic disease. Reviewed, dictated and finalized at location A.
--- NOTE | ~2022-04-25 | CT_ITS ---
EXAMINATION: CTA chest PE protocol DATE: 04/25/2022 20:09 INDICATION: Pulmonary embolism. TECHNIQUE: Computed tomography angiography (CTA) of the chest was performed with 100 mL Omnipaque-350 intravenous contrast timed to evaluate the pulmonary arteries. Coronal maximum intensity projection 3D-reconstructions were created by the technologist. Automated exposure control and iterative reconst ruction technique were employed. The dose-length product was 919.31 mGy-cm. COMPARISON: Chest CT 04/08/2022, CT abdomen and pelvis 03/17/2021 FINDINGS: A calcified right lung nodule and calcified right hilar lymph nodes are consistent with old granulomatous disease. There are greater than 50 scattered nodules in the lungs measuring up to 19 m m in right lower lobe. No pleural effusion. The heart size is normal. There are coronary artery calci fications. No pericardial effusion. There is no pulmonary embolus. There are nodules in the thyroid m easuring up to 9 mm, likely not clinically significant. There is mild right hilar and mediastinal lym phadenopathy. There is liver surface nodularity, consistent with cirrhosis. There is an ill-defined h ypodense mass in right hepatic lobe. Calcifications in the spleen are consistent with old granulomato us disease. There is mild splenomegaly. There is gastrohepatic, periportal, and left para-aortic lymp hadenopathy. There is a 16 mm mass in right adrenal gland. There are bridging endplate osteophytes at multiple levels in the spine, consistent with diffuse idiopathic skeletal hyperostosis (DISH). There is mild chronic anterior wedging of multiple thoracic vertebral bodies. There is moderate thoracic s pondylosis. IMPRESSION: 1. No pulmonary embolus. 2. Lung nodules, liver mass, right adrenal mass, and chest and abdominal lymphadenopathy, consistent with metastatic disease. 3. Cirrhosis of the liver with portal venous hypertension. Reviewed, dictated and finalized at location A. IMPRESSION: 1. No pulmonary embolus. 2. Lung nodules, liver mass, right adrenal mass, and chest and abdominal lympha denopathy, consistent with metastatic disease. 3. Cirrhosis of the liver with portal venous hypertension.
--- NOTE | ~2022-04-25 | CT_ITS ---
EXAMINATION: CT brain wo con DATE: 04/25/2022 20:04 INDICATION: Head injury. TECHNIQUE: Computed tomography (CT) of the head was performed without intravenous contrast. The mA wa s adjusted according to patient size. Iterative reconstruction technique was employed. The dose-lengt h product was 605.33 mGy-cm. COMPARISON: Head CT 04/16/22 FINDINGS: There is a small old infarct in right cerebellum. There is an old infarct involving the rig ht basal ganglia and right frontal lobe. There are scattered areas of low attenuation in the cerebral white matter. There is no intracranial hemorrhage, acute infarction, or abnormal intracranial mass l esion. The ventricles are normal in size. There are likely changes of ocular lens replacement surgeri es. There is mild mucosal thickening in the ethmoid sinuses. The mastoid air cells are normal. IMPRESSION: 1. Old infarcts involving the right cerebellum, right basal ganglia, and right frontal lobe. 2. Stable mild nonspecific cerebral white matter disease, which likely represents chronic small vesse l ischemic disease. Reviewed, dictated and finalized at location A. IMPRESSION: 1. Old infarcts involving the right cerebellum, right basal ganglia, and right frontal lobe. 2. Stable mild nonspecific cerebral white matter disease, which likely represen ts chronic small vessel ischemic disease.
--- NOTE | 2022-04-25 16:26 | ECG_ITS ---
Measurements Intervals [place] Rate: 90 P: -7 AR: 145 QRS: -10 QRSD: 89 T: 23 QT: 378 QTc: 464 Interpretive Statements SINUS RHYTHM LOW QRS VOLTAGE IN PRECORDIAL LEADS [QRS DEFLECTION < 1.0 mV IN CHEST LEADS] POSSIBLE ANTERIOR MYOCARDIAL INFARCTION , PROBABLY OLD [30 ms Q WAVE IN V3/V4, OR R < 0.2 mV IN V4] ABNORMAL ECG COMPARED TO ECG 04/05/2022 15:31:50 NO SIGNIFICANT CHANGES Electronically Signed On 04-26-2022 10:41:52 CDT by Sal Booker M.D.
--- NOTE | 2022-04-25 18:10 | PC.NURSE ---
Patient stuck multiple times for blood draw by nursing staff, unsuccessful at this time.
--- NOTE | 2022-04-25 18:20 | ED.RECABL ---
HPI - Recheck/Abnormal Lab/Rx General Chief Complaint: Recheck/Abnormal Lab/Rx Stated Complaint: h+h 8.1 - pcp sent here, dizzy, no energy Time Seen by Provider: 04/25/22 17:46 Source: patient, family and RN notes reviewed Mode of arrival: EMS History of Present Illness HPI narrative: This is a 76 year old female with history of DM, hypertension, and CHF who presents for evaluation of low hemoglobin. Patient was admitted to hospital 2 weeks ago for evaluation of leg swelling and abdominal pain. She was found to have liver mass with metastasis to bone and lungs, and she was transferred to [place]. She had a PET scan that confirmed suspicious of cancer, and she was evaluated by oncology at [place] as well. Patient had outpatient labs performed today that showed hemoglobin 8.1. Patient's daughter states she was told by her primary care provider to come to ER if her hemoglobin was below 8. She denies any bleeding. She denies melena. She denies chest pain, nausea, vomiting or abdominal pain. She reports chronic shortness of breath. Her daughter states she is sleeping alot so she brought her to ER. She fell 1 week ago and she had to come to ER for head injury. Related Data Home Medications Medication Instructions Recorded Confirmed aspirin 81 mg tablet,delayed 81 mg PO DAILY 05/10/20 04/17/22 release (Adult Aspirin Regimen) cholecalciferol (vitamin D3) 125 125 mcg PO DAILY 05/10/20 04/17/22 mcg (5,000 unit) capsule coenzyme Q10 200 mg capsule (Co 100 mg PO BID 05/10/20 04/17/22 Q-10) Allergies Allergy/AdvReac Type Severity Reaction Status Date / Time No Known Allergies Allergy Mild Verified 04/17/22 10:16 Review of Systems Review of Systems: All systems reviewed & are unremarkable except as noted in HPI and below Constitutional: Constitutional: Denies chills, Reports fatigue and Denies fever(s) PMFSH Past Medical History Medical History Acute on chronic anemia Arthritis Chronic kidney disease Chronic obstructive pulmonary disease Cirrhosis of liver Degenerative disc disease Hepatocellular carcinoma Hypertension Liver cirrhosis secondary to DURAND Metastatic cancer to lung Obstructive sleep apnea Type 2 diabetes mellitus Uterine cancer Weight loss Surgical History Surgical History History of abdominal aortic aneurysm repair History of cataract extraction with lens replacement History of cholecystectomy History of colonoscopy with polypectomy History of hernia repair History of hysterectomy Family History Family History Father Family history of cardiovascular disease Mother Carcinoma of colon, Onset Age: 65 Breast cancer Sibling Family history of pancreatic cancer, Onset Age: 43 Diabetes mellitus Social History Social History Social History: The patient is and has 1 biological child in 3 step children. Retired from working for the [employer]. She smoked 2 packs of cigarettes a day for 30 years and quit in 1991. No alcohol or illicit substance abuse. She designates her daughter, Ronit Catalan, as her surrogate decision maker and she wishes to be a full code. Smoking status: Former smoker Spiritual care concerns: No Exam Const: General: no acute distress and alert Nutritional Appearance: well nourished Orientation/consciousness: patient oriented x3 Limitations: no limitations HENMT: Throat: posterior oropharynx normal Eyes: Pupils: Equal, round and reactive pupils present EOM: EOMs intact bilaterally Chest: Chest palpation & inspection: normal inspection of the chest Resp: Effort & Inspection: normal respiratory effort Auscultation: clear to auscultation bilaterally Cardio: Rate: regular rate Rhythm: reg
--- NOTE | 2022-04-25 18:35 | PCRCNOTE ---
Family is refusing to have the ABG drawn at this time. Wants Pt. more hydrated and to have an IV first. Dr. Burr notified.
[2022-04-25 18:53] LABS: Basophils Percent Auto 0.3 % (0.2-1.2); Eosinophils Absolute Auto 0.2 K/mm3 (0-0.3); Eosinophils Percent Auto 1.4 % (0-4.4); Hematocrit 27.7 % (37.0-47.0); Hemoglobin 8.2 g/dL (12.0-15.0); Immature Granulocyte Absolute 0.07 K/mm3 (0.00-0.031); Immature Granulocyte Percent A 0.6 % (0-0.5); Lymphocytes Absolute Auto 1.33 K/mm3 (0.9-3.2); Lymphocytes Percent Auto 12.3 % (18.3-44.2); Mean Corpuscular HGB Conc 29.6 g/dl (32-36); Mean Corpuscular Hemoglobin 26.6 pg (26-34); Mean Corpuscular Volume 89.9 fl (80-100); Mean Platelet Volume 10.4 fl (7.4-10.4); Monocytes Absolute Auto 0.8 K/mm3 (0.1-0.6); Monocytes Percent Auto 7.4 % (2.6-8.5); Neutrophils Absolute Auto 8.4 K/mm3 (1.3-6.7); Platelet Count Result 339 k/mm3 (150-375); Red Blood Count 3.08 M/mm3 (4.2-5.4); Red Cell Distribution Width 16.1 % (11.5-14.5); White Blood Count 10.8 K/mm3 (4.5-10.0)
[2022-04-25 19:03] LABS: INR 1.4; Prothrombin Time 16.1 Seconds (11.1-14.7)
[2022-04-25 19:04] LABS: Partial Thromboplastin Time 30.6 SECONDS (22.3-36.8)
[2022-04-25 19:13] LABS: Alanine Aminotransferase 49 U/L (6-35); Albumin Level 3.4 g/dL (3.5-5.1); Alkaline Phosphatase 225 U/L (38-126); Anion Gap 10 mmol/L (8-16); Aspartate Amino Transferase 48 U/L (14-36); Bilirubin,Total 0.5 mg/dL (0.2-1.3); Blood Urea Nitrogen 25 mg/dL (7-17); Calcium 9.4 mg/dL (8.4-10.2); Carbon Dioxide 27 mmol/L (22-30); Chloride 98 mmol/L (98-107); Estimated CRCL calculation 42 ml/min; Estimated Glomerular Filt Rate 44; Glucose 160 mg/dL (65-110); Potassium 4.1 mmol/L (3.4-5.0); Sodium 135 mmol/L (137-145)
[2022-04-25 19:14] LABS: Hypochromasia 1+ (NORMAL); Ovalocytes 1+ (NORMAL); Platelet Estimate Adequate (Adequate)
[2022-04-25 19:20] LABS: NT Pro B Type Natriuretic Pept 454 pg/mL (5-100)
--- NOTE | 2022-04-25 20:01 | PC.NURSE ---
Pt to CT scan at this time.
[2022-04-25 20:30] LABS: Troponin I 0.023 ng/mL (0.000-0.034)
== END 2022-04-25 21:13 | disposition home or self-care (01) ==
PROVIDERS: Emergency Medicine; Emergency Provider General Practice; PCP Physician Assistant
DX: D64.9 Anemia, unspecified (principal); C22.0 Liver cell carcinoma; C79.51 Secondary malignant neoplasm of bone; C78.02 Secondary malignant neoplasm of left lung; C78.01 Secondary malignant neoplasm of right lung; I13.0 Hypertensive heart and chronic kidney disease with heart failure and stage 1 through stage 4 chronic kidney disease, or unspecified chronic kidney disease; E11.22 Type 2 diabetes mellitus with diabetic chronic kidney disease; N18.9 Chronic kidney disease, unspecified; I50.9 Heart failure, unspecified; J44.9 Chronic obstructive pulmonary disease, unspecified; K74.60 Unspecified cirrhosis of liver; K75.81 Nonalcoholic steatohepatitis (NASH); G47.33 Obstructive sleep apnea (adult) (pediatric); M19.90 Unspecified osteoarthritis, unspecified site; Z85.42 Personal history of malignant neoplasm of other parts of uterus; Z98.49 Cataract extraction status, unspecified eye; Z96.1 Presence of intraocular lens; Z90.710 Acquired absence of both cervix and uterus; Z87.891 Personal history of nicotine dependence; Z79.84 Long term (current) use of oral hypoglycemic drugs; Z79.899 Other long term (current) drug therapy; Z79.82 Long term (current) use of aspirin; R94.31 Abnormal electrocardiogram [ECG] [EKG]
CPT/HCPCS: 36415; 70450; 71045; 71275; 80053; 83880; 84484; 85025; 85610; 85730; 86850; 86900; 86901; 93005; 99284; Q9967